=== PATIENT | female | born 1980 | race African-American/Black ===

== ENCOUNTER 2017-08-21 05:15 | Emergency (ER) | payer OTHER ==
[~2017-08-21] VITALS: Ht 185.4 cm; Wt 89.8 kg
--- NOTE | ~2017-08-21 | EKG ---
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
[~2017-08-21 05:15] MED LIST: BACTRIM DS TAB1 EACH PO; DOXYCYCLINE 10100 MG PO; IBUPROFEN 200200 M1 PO; IBUPROFEN 800800 MG PO; LANTUS100 UNIT/M SUBQ; LISINOPRIL10 MG PO; METFORMIN HCL500 MG PO; NEURONTIN600 MG PO; NOHOMEMEDICATIONS; NORCO 5-325 TA1 EACH PO; NOVOLOG100 UNIT/1 SUBQ; OXYBUTYNIN 5 MG5 M2 PO; PERCOCET PO
[2017-08-21 05:16] VITALS: BP 148/93
[2017-08-21 05:37] LABS: ABSOLUTE NEUTROPHILS 8.4 thou/uL (1.4-8.2); BASOPHILS 0.7 % (0.0-2.0); EOSINOPHILS 2.4 % (0.0-3.0); HEMATOCRIT 34.2 % (37.0-47.0); HEMOGLOBIN 11.6 gm/dL (12.0-15.0); LYMPHOCYTES 18.2 % (24.0-44.0); MCH 29.7 pg (26.0-34.0); MCHC 33.8 g/dL (28.0-37.0); MCV 87.9 fL (80.0-100.0); MONOCYTES 5.1 % (1.0-8.0); PLATELET COUNT 383 thou/uL (150-400); POLYS 73.6 % (36.0-66.0); RBC 3.89 mil/uL (4.20-5.00); RDW 15.2 % (10.5-14.5); WBC 11.5 thou/uL (4.0-11.0)
[2017-08-21 05:39] LABS: URINE BILIRUBIN NEGATIVE (Negative); URINE BLOOD 2+ (Negative); URINE CLARITY CLEAR; URINE COLOR YELLOW; URINE GLUCOSE-RANDOM* 2+ (Negative); URINE KETONES NEGATIVE (Negative); URINE LEUKOCYTES-REFLEX NEGATIVE (Negative); URINE NITRITE-REFLEX POSITIVE (Negative); URINE PROTEIN (DIPSTICK) 3+ (Negative); URINE UROBILINOGEN 0.2 E.U./dl (0.2-1.0)
[2017-08-21 05:41] LABS: ANION GAP 9 mmol/L (7-16); BUN 10 mg/dL (7-18); CALCIUM 8.4 mg/dL (8.5-10.1); CHLORIDE 104 mmol/L (98-107); CO2 26 mmol/L (21-32); CREATININE 0.9 mg/dL (0.6-1.0); GLUCOSE 336 mg/dL (74-106); POTASSIUM 3.3 mmol/L (3.5-5.1); SODIUM 139 mmol/L (136-145)
[2017-08-21 05:49] LABS: ALBUMIN 1.3 g/dL (3.4-5.0); SALICYLATE < 2.8 mg/dL (2.8-20.0); SGOT 20 U/L (15-37); SGPT 11 U/L (30-65); TOTAL BILIRUBIN 0.3 mg/dL (<0.1-1.0); TOTAL PROTEIN 5.8 g/dL (6.4-8.2); TROPONIN-I < 0.04 ng/mL (<0.06)
[2017-08-21 06:23] LABS: CASTS None Seen /LPF (None Seen); MUCUS None Seen strn/LPF (None Seen); SQUAMOUS None Seen /LPF (0-3); URINE RBC 3-10 Few /HPF (0-2)
[2017-08-21 06:24] LABS: CRYSTALS None Seen /LPF (None Seen); URINE WBC-REFLEX 6-15 Few /HPF (0-5); WBC CLUMPS Few (None Seen)
[2017-08-21 06:30] LABS: AMP/METHAMP POSITIVE (Negative); BARBITURATES Negative (Negative); BENZODIAZEPINES Negative (Negative); COCAINE Negative (Negative); METHADONE Negative (Negative); OPIATES Negative (Negative); PCP POSITIVE (Negative)
[2017-08-21 09:30] VITALS: BP 130/79
[2017-08-21 10:58] VITALS: BP 146/88
[2017-08-21 12:14] VITALS: BP 148/76
[2017-08-21 13:54] VITALS: BP 130/79
[2017-08-21] MEDS ORDERED: CIPRO500 MG PO ×2 (16:43→16:49)
[2017-08-21 17:14] VITALS: BP 121/68
== END 2017-08-21 17:15 | disposition left against medical advice (07) ==
LOC: ER 05:15 → EROBS 07:00 → ER 07:00 → EROBS 17:15
PROVIDERS: Emergency Medicine
DX: R41.82 Altered mental status, unspecified (principal); E11.9 Type 2 diabetes mellitus without complications; F17.210 Nicotine dependence, cigarettes, uncomplicated

== ENCOUNTER 2019-05-13 21:56 | Inpatient (IN) | payer OTHER ==
[~2019-05-13] VITALS: Ht 162.6 cm; Wt 100.2 kg
[~2019-05-13 21:56] MED LIST changes: +CIPRO500 MG PO
[2019-05-13 21:57] VITALS: BP 196/124
[2019-05-13 22:33] LABS: BASOPHILS 0.8 % (0.0-2.0); EOSINOPHILS 5.9 % (0.0-3.0); LYMPHOCYTES 29.6 % (24.0-44.0); MCH 28.1 pg (26.0-34.0); MCHC 31.3 g/dL (28.0-37.0); MCV 89.6 fL (80.0-100.0); MONOCYTES 6.8 % (1.0-8.0); PLATELET COUNT 274 thou/uL (150-400); POLYS 56.9 % (36.0-66.0); RBC 3.57 mil/uL (4.20-5.00); RDW 16.5 % (10.5-14.5); WBC 7.1 thou/uL (4.0-11.0)
[2019-05-13 22:58] LABS: ANION GAP 6 mmol/L (7-16); BUN 27 mg/dL (7-18); CALCIUM 8.1 mg/dL (8.5-10.1); CHLORIDE 104 mmol/L (98-107); CO2 24 mmol/L (21-32); CREATININE 2.8 mg/dL (0.6-1.0); GLUCOSE 163 mg/dL (74-106); POTASSIUM 4.6 mmol/L (3.5-5.1); SODIUM 134 mmol/L (136-145)
[2019-05-13 23:07] LABS: TROPONIN-I <0.06 ng/mL (<0.06)
[2019-05-13 23:48] VITALS: BP 178/118
[2019-05-13] MEDS ORDERED: LISINOPRIL10 MG PO (23:52)
--- NOTE | 2019-05-13 23:54 | NUR ---
ED NURSE CALLED TO GIVE REPORT TO INPATIENT NURSE, WAS TOLD SHE WILL HAVE TO CALL HER BACK
[2019-05-14 00:30] VITALS: BP 163/102
[2019-05-14] MEDS ORDERED: LANTUS SUBQ (01:36)
[2019-05-14] MEDS ORDERED: PLAVIX 75 MG TA75 MG PO (03:21)
[2019-05-14 04:30] VITALS: BP 157/85
--- NOTE | 2019-05-14 04:59 | NUR ---
PT ARRIVED UNIT AT ABOUT 0035, PT A/OX4, BP ELEVATED, ON 2LO2, ASSESSMENT CHARTED, ADMISSION COMPLETED. PAIN IN RIGHT STUMP MANAGED WITH REPOSITION, ELEVATION, AND MEDICATION. COMPLAINTS OF SOB, OXYGEN INCREASED TO 4L, BREATHING TREATMENT ORDERED AND ADMINISTERED, HELPED. PT RESTING IN BED, WILL CONTINUE TO MONITOR.
[2019-05-14 05:42] LABS: AMP/METHAMP Negative (Negative); BARBITURATES Negative (Negative); BENZODIAZEPINES Negative (Negative); COCAINE Negative (Negative); METHADONE Negative (Negative); OPIATES Negative (Negative); PCP POSITIVE (Negative)
[2019-05-14 06:27] LABS: CALCIUM 8.5 mg/dL (8.5-10.1); CREATININE 2.9 mg/dL (0.6-1.0); MAGNESIUM 1.6 mg/dL (1.8-2.4); POTASSIUM 4.4 mmol/L (3.5-5.1)
--- NOTE | 2019-05-14 07:41 | EKG ---
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 : 1980 Requested By: Eric Jamison Order Number: [id number] MD: Juan Jordan Measurements Intervals [place] Rate: 105 P: 33 UT: 152 QRS: 27 QRSD: 81 T: -30 QT: 389 QTc: 515 Interpretive Statements Sinus tachycardia RSR' in V1 or V2, probably normal variant Possible inferior and lateral infarcts, age indeterminate Prolonged QT interval No previous ECGs available for comparison Electronically Signed On 05-14-2019 7:41:02 GRAVITY METER OBSERVER by Juan Jordan [email or web address] <ELECTRONICALLY SIGNED> By: Juan Jordan MD, [facility] 05/14/19 0741 00 00 Juan Jordan MD, [facility] /EPI
[2019-05-14 08:00] VITALS: BP 152/98
--- NOTE | 2019-05-14 09:39 | 2DMMODE ---
[facility] [address] [place] [address] 2 D/M-MODE ECHOCARDIOGRAM Name: CLAUDETTE LAWSON Room #: 215-P ADM IN ..#: [id number] Admission: 05/13/19 Attend Phys: Prashant Tim Discharge: Date of : 80 Report #: [id number] THIS REPORT FOR: //name// APPROVED REPORT Study performed: 05/14/2019 08:13:30 EXAM: Comprehensive 2D, Doppler, and color-flow Echocardiogram Patient Location: Bedside Room #: 215 Status: routine BSA: 2.04 HR: 95 bpm BP: 157/85 mmHg Other Information Study Quality: Adequate Indications Congestive Heart Failure Diabetes Hypertension/HDD 2D Dimensions RVDd: 46.50 mm IVSd: 12.40 (7-11mm) LVOT Diam: 19.97 (18-24mm) LVDd: 42.56 mm PWd: 13.44 (7-11mm) Ascending Ao: 26.30 (22-36mm) LVDs: 39.98 (25-40mm) Aortic Root: 27.01 mm IVC: 24.00 mm Volumes Left Atrial Volume (Systole) Single Plane 4CH: 59.56 mL Single Plane 2CH: 90.35 mL LA ESV Index: 39.00 mL/m2 Aortic Valve AoV Peak Stalin.: 0.90 m/s AO Peak Gr.: 3.21 mmHg LVOT Max P.54 mmHg LVOT Max V: 0.62 m/s AMMY Vmax: 2.17 cm2 Pulmonary Valve PV Peak Stalin.: 1.49 m/s PV Peak Gr.: 8.92 mmHg [facility] [address] [place] [address] 2 D/M-MODE ECHOCARDIOGRAM Name: CLAUDETTE LAWSON Room #: 215-P [facility]#: [id number] Admission: 05/13/19 Attend Phys: Prashant Tim Discharge: Date of : 80 Report #: [id number] Pulmonary Vein P Vein S: 0.85 m/s P Vein A: 0.30 m/s P Vein D: 0.37 m/s P Vein A Dur.: 90.0 msec P Vein S/D Ratio: 2.30 Tricuspid Valve TR Peak Stalin.: 3.18 m/s RAP Estimate: 15.00 mmHg TR Peak Gr.: 40.50 mmHg PA Pressure: 55.00 mmHg Left Ventricle The left ventricle is normal size. There is global hypokinesis of the left ventricle. Mild concentric left ventricular hypertrophy. Left ventricular ejection fraction is severely decreased. LVEF is 25-30%. Right Ventricle Right ventricle is moderately dilated. The right ventricular systolic function is normal. Atria Left atrium is mildly dilated. Right atrium is moderately dilated. Aortic Valve The aortic valve is normal in structure. No aortic regurgitation is present. There is no aortic valvular stenosis. Mitral Valve The mitral valve is normal in structure. There is no mitral valve regurgitation noted. No evidence of mitral valve stenosis. Tricuspid Valve The tricuspid valve is normal in structure. Mild tricuspid regurgitation. PAP is estimated at 55 mmHg. Pulmonic Valve The pulmonary valve is normal in structure. Trace pulmonic regurgitation. Great Vessels The aortic root is normal in size. IVC is dilated and collapses <50% with inspiration. Pericardium Large pericardial effusion with tamponade physiology Left pleural [facility] [address] [place] [address] 2 D/M-MODE ECHOCARDIOGRAM Name: JADE LAWSONLAI Pompa Room #: 215-P ADM IN .R.#: [id number] Admission: 05/13/19 Attend Phys: Prashant Tim Discharge: Date of : 80 Report #: [id number] effusion is present. <Conclusion> Left ventricular ejection fraction is severely decreased. There is global hypokinesis of the left ventricle. LVEF is 25-30%. Both atria are dilated. The aortic valve is normal in structure. No aortic regurgitation or stenosis The mitral valve is normal in structure. No mitral valve regurgitation. Mild tricuspid regurgitation. PAP is estimated at 55 mmHg. Large pericardial effusion with tamponade physiology <ELECTRONICALLY SIGNED> By: Juan Jordan MD, [facility] 05/14/19 0938 7 7 Juan Jordan MD, FACC /INF
[2019-05-14 11:26] LABS: BF NUCLEATED CELLS 905; BF RBC 1761
--- NOTE | 2019-05-14 11:48 | NUR ---
Case opened to follow for dc planning. Rn Otolaryngology visited with the pt at bedside. She has pericardial fluid taken off this morning. She is drowsy but able to answer basic questions. She is disabled and is a bilat amputee. She has CHF and hx of substance abuse. She reports that she hasn't used drugs or smoked in over 30 days. UDS positive for PCP. Pt denies need or interested in substance abuse or mental health resources. She indicates she lives with her mother, sister, children and other extended family in a house. She and her mother live on the main level. She has a w/c and her prothetic legs at home. She has not been able to use her lt prothesis due to a wound on her stump. She reports being at 2 months ago but does not have any f/u appointments and ran out of medications at home. She has been to [facility] but does not recall when. She reports her next of kin contact to be her father and her medical dpoa to be her best friend Kulwant Irizarry. The pt has health insurance coverage for meds and f/u care;however compliance and substance abuse are concerns. The pt was here last year but left AMA. Message left for admissions at [facility] to confirm her last rehab stay. The pt reports no hh history. Will ask for therapy evals. The pt reports she transfers to her w/c from bed indep without a sliding board. Her plan is to dc home when medically cleared. Will follow for possible HH or rehab referrals at [place].
[2019-05-14 11:58] LABS: CLARITY HAZY; COLOR YELLOW; SOURCE PERICARDIAL; TOTAL VOLUME 60 mL
--- NOTE | 2019-05-14 12:16 | 2DMMODE ---
[facility] [place] [address] 2 D/M-MODE ECHOCARDIOGRAM Name: CLAUDETTE LAWSON Peña Room #: 215-P ADM IN M.R.#: [id number] Admission: 05/13/19 Attend Phys: Prashant Tim Discharge: Date of : 80 Report #: [id number] THIS REPORT FOR: //name// APPROVED REPORT Study performed: 05/14/2019 09:42:55 EXAM: Limited 2D Echocardiogram Patient Location: Drug Discovery Informatics Specialist Room #: 215 Status: routine BSA: 2.12 Other Information Study Quality: Adequate Indications Pericardial Effusion Left Ventricle Left ventricular systolic function is severely decreased. LVEF is 25-30%. Pericardium Large circumferential pericardial effusion. No fluid visualized post pericardiocentesis. <Conclusion> Left ventricular systolic function is severely decreased. LVEF is 25-30%. Large circumferential pericardial effusion. No fluid visualized post pericardiocentesis. <ELECTRONICALLY SIGNED> By: Juan Jordan MD, FACC 05/14/196 15 15 Juan Jordan MD, FACC /INF
[2019-05-14 12:32] VITALS: BP 150/99
[2019-05-14 13:32] LABS: BF MACROPHAGE 2; BF NEUTROPHILS 0
--- NOTE | 2019-05-14 15:40 | NUR ---
I have reviewed the documentation by SANJAY PERKINS from 05/14/19 to 05/14/19 and I concur with it. JOSUE CARTER
[2019-05-14 16:00] VITALS: BP 148/84
[2019-05-14 16:18] LABS: URINE BILIRUBIN NEGATIVE (Negative); URINE BLOOD 1+ (Negative); URINE CLARITY CLEAR; URINE COLOR YELLOW; URINE GLUCOSE-RANDOM* NEGATIVE (Negative); URINE KETONES NEGATIVE (Negative); URINE LEUKOCYTES NEGATIVE (Negative); URINE NITRITE NEGATIVE (Negative); URINE PROTEIN (DIPSTICK) 2+ (Negative); URINE UROBILINOGEN 0.2 E.U./dl (0.2-1.0)
[2019-05-14 16:22] LABS: PROT/CREAT RATIO 16.1; URINE CREATININE-RANDOM* <13 mg/dL; URINE PROTEIN-RANDOM* 209.7 mg/dL (<11.9)
[2019-05-14 16:50] LABS: SQUAMOUS 0-3 Few /LPF (0-3)
[2019-05-14 16:51] LABS: BACTERIA 1-9 Few /HPF (None Seen); CASTS None Seen /LPF (None Seen); CRYSTALS None Seen /LPF (None Seen); URINE RBC 0-2 Rare /HPF (0-2); URINE WBC None Seen /HPF (0-5)
--- NOTE | 2019-05-14 19:26 | NUR ---
PT ALERT AND ORIENTED. VSS. RECEIVED PRN PAIN MED WITH PARTIAL RELIEF. NEW ORDERS NOTED. NO CARDIAC OR RESPIRATORY DISTRESS NOTED. WILL CONTINUE TO MONITOR.
[2019-05-14 20:05] VITALS: BP 132/80
[2019-05-15 01:07] LABS: GLYCOHEMOGLOBIN (HGB A1C) 7.6 % (4.8-5.6)
[2019-05-15 05:05] LABS: ALBUMIN 1.6 g/dL (3.4-5.0); CALCIUM 8.9 mg/dL (8.5-10.1); PHOSPHORUS 5.4 mg/dL (2.5-4.9); POTASSIUM 4.8 mmol/L (3.5-5.1)
[2019-05-15 06:11] VITALS: BP 146/85
--- NOTE | 2019-05-15 07:33 | NUR ---
PT REMAINS A&O, SOFT SPOKEN, PRN PAIN MEDS GIVEN FOR BACK PAIN, VSS, REFUSED LANTUS INSULIN AT HS FOR BG OF 79, SET UP FOR SPONGE BATH, EXTERNAL DRAINING CLEAR YELLOW URINE, C/O BACK AND L SHOULDER PRESSURE AT SHIFT CHANGE, EKG,TROPONIN, AND RT TX GIVEN AND REPORT GIVEN TO NEXT SHIFT TO CON'T WITH PPOC.
[2019-05-15 08:00] VITALS: BP 151/89
[2019-05-15 12:00] VITALS: BP 144/97
[2019-05-15 15:41] VITALS: BP 140/96
--- NOTE | 2019-05-15 15:45 | NUR ---
PT ASSESSED AT START OF SHIFT. HAD C/O CHEST PRESSURE RADIATING TO LT SHOULDER. EKG NEG AND TROPONIN NEG. CARD AND NEPH DRS EXPLAINED TO PT IT WAS FROM THE CARDIOCENTESIS AND WOULD BE SORE FOR A WHILE. EXT FEMALE CATHETER IN PLACE BUT DID NOT CATCH ALL THE URINE. BREATHING BETTER AND NOW ON 2L NC. PT SLEEPING MUCH OF THE SHIFT-NOT EATING VERY WELL FOR FALLING ASLEEP. NO ADDITIONAL PAIN MED GIVEN.
[2019-05-15 16:35] VITALS: BP 125/90
--- NOTE | 2019-05-15 17:26 | NUR ---
RECEIVED PT'S CARE AROUND 1600; PT. ON BED RESTING WITH EYES CLOSED; A0X4; C/O BACK PAIN & R. LOWER LEG; PRN PAIN MEDICATION GIVEN; PT. DROWSY; VS WNL; PRN PAIN MEDICATION GIVEN; PT. ST. LAST BM TWO DAYS AGO; EDUCATED ABOUT THE RELATION OF NARCOTICS & CONSTIPATION; REFUSED MEDICATION; ST. NOT FEELING CONSTIPATED; HAD LUNCH AROUND 1600; NOT ABLE TO ASSESS BS; NO INSULIN COVER; ASSESSMENT CHARGED; FOLLOWING POC; WILL PASS ON REPORT;
[2019-05-15 19:57] VITALS: BP 110/68
[2019-05-15 20:06] LABS: COMPLEMENT-C3 133 mg/dL (82-167); COMPLEMENT-C4 47 mg/dL (14-44)
[2019-05-16 03:00] VITALS: BP 116/71
--- NOTE | 2019-05-16 03:29 | NUR ---
pt resting quietly in bed turning as needed, prn pain med given as needed.vss, will con't to monitor per ppoc.
[2019-05-16 04:19] LABS: ALBUMIN 1.4 g/dL (3.4-5.0); CALCIUM 8.6 mg/dL (8.5-10.1); CREATININE 3.4 mg/dL (0.6-1.0); PHOSPHORUS 5.3 mg/dL (2.5-4.9); POTASSIUM 4.8 mmol/L (3.5-5.1)
[2019-05-16 04:26] LABS: HEMATOCRIT 32.4 % (37.0-47.0); HEMOGLOBIN 10.5 gm/dL (12.0-15.0); MCH 28.5 pg (26.0-34.0); MCHC 32.4 g/dL (28.0-37.0); MCV 88.1 fL (80.0-100.0); RBC 3.67 mil/uL (4.20-5.00); RDW 16.1 % (10.5-14.5); WBC 8.7 thou/uL (4.0-11.0)
[2019-05-16 07:35] VITALS: BP 108/65
[2019-05-16 10:12] VITALS: BP 108/71
[2019-05-16 11:00] VITALS: BP 108/62
--- NOTE | 2019-05-16 12:56 | EKG ---
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 : 1980 Requested By: Lizandro Joshi Order Number: [id number] MD: Juan Jordan Measurements Intervals [place] Rate: 92 P: 53 [place]: 162 QRS: 63 QRSD: 90 T: QT: 436 QTc: 540 Interpretive Statements Sinus rhythm RSR' in V1 or V2, right VCD Prolonged QT interval Compared to ECG 05/13/2019 22:01:16 Sinus tachycardia no longer present Electronically Signed On 05-16-2019 12:56:41 SELLING SPECIALIST by Juan Jordan [email or web address] <ELECTRONICALLY SIGNED> By: Juan Jordan MD, [facility] 05/16/19 1256 0655 0655 Juan Jordan MD, [facility] /EPI
[2019-05-16 17:26] VITALS: BP 120/78
--- NOTE | 2019-05-16 17:46 | NUR ---
PATIENT TRANSFERED FROM CCU AT 1730. A/O X4. NO DISDRESS NOTED.
--- NOTE | 2019-05-16 18:49 | NUR ---
RECEIVED PT'S CARE AROUND 0725; PT. ON BED RESTING; CHEST EQUAL RISING; DURING ASSESSMENT AOX4; C/O PAIN OVER BACK & L. LEG; REQUESTED PRN PAIN MEDICATION; SBP ON THE 100s; BLOOD PRESSURE GIVEN AM; EDUCATED ABOUT BLOOD PRESSURE MEDICATION & PAIN MEDICATION; ST. UNDERSTANDING; PRN PAIN MEDICATION GIVEN LATER; PAIN RE-ASSESSMENT; PT. ST. DECREASE PAIN; LAST BM FEW DAYS AGO; PHYSICIAN NOTIFIED; DRESING CHANGED; SR ON HEART MONITOR; ASSESSMENT CHARGED; FOLLOWING POC; AT 1700 PT. TRANSFER TO ; REPORT GIVEN;
[2019-05-16 19:51] VITALS: BP 120/67
[2019-05-17 03:42] LABS: HEMATOCRIT 30.2 % (37.0-47.0); HEMOGLOBIN 9.6 gm/dL (12.0-15.0); MCH 28.2 pg (26.0-34.0); MCHC 31.9 g/dL (28.0-37.0); MCV 88.5 fL (80.0-100.0); RBC 3.42 mil/uL (4.20-5.00); RDW 16.1 % (10.5-14.5); WBC 7.5 thou/uL (4.0-11.0)
[2019-05-17 03:48] LABS: ALBUMIN 1.2 g/dL (3.4-5.0); CALCIUM 8.3 mg/dL (8.5-10.1); CREATININE 3.6 mg/dL (0.6-1.0); PHOSPHORUS 5.4 mg/dL (2.5-4.9); POTASSIUM 4.9 mmol/L (3.5-5.1)
[2019-05-17 04:52] VITALS: BP 106/62
--- NOTE | 2019-05-17 05:16 | NUR ---
ASSUMED CARE AT 1900. PT DENIES PAIN OR NAUSEA. DENIES SOB BUT C/O FEELING TIRED; LUNGS ARE COARSE ON THE RIGHT, NO CRACKLES NOTED. HAS NOT NEEDED ANY O2 OVERNIGHT. 2+ PITTING EDEMA BLE, COOL AND SLIGHTLY CLAMMY; DISTENDED STOMACH WITH 1+ PITTING EDEMA. DRESSING ON RIGHT BKA CAME OFF; PLACED NEW AQUACEL TO WOUND BED AND PLACED A BORDER FOAM OVER IT. PT PULLED THE EXTERNAL CATHETER OUT, WAS INCONT OF URINE OVERNIGHT. NO OTHER CONCERNS, WILL CONTINUE TO MONITOR.
[2019-05-17 07:28] VITALS: BP 106/68
[2019-05-17 11:18] VITALS: BP 104/66
[2019-05-17 15:31] VITALS: BP 130/84
--- NOTE | 2019-05-17 18:10 | NUR ---
PATIENT ALERT AND ORIENTED X4, PAIN MILDLY CONTROLLED WITH MEDICATION. RIGHT LEG STUMP RE-DRESSED AND WRAPED WITH STEVIE BANDAGE. PATIENT TRANSFERRED TO [facility] WITH X2 ASSISTANCE AND GAIT BELT. PATIENT'S DIET CHANGED FROM CARB CONTROLLED TO RENAL/CARB CONTROLED. PATIENT EDUCATED ON THE CHANGE IN FOOD OPTIONS. NO SIGNS OF ACUTE DISTRESS NOTED AT THIS TIME, WILL CONTINUE TO MONITOR.
[2019-05-17 21:04] VITALS: BP 131/78
--- NOTE | 2019-05-17 21:24 | CATHLAB ---
[facility] [address] [place] [address] INVASIVE PROCEDURE REPORT Name: CLAUDETTE LAWSON Peña Room #: 360-P ADM IN ..#: [id number] Admission: 05/13/19 Attend Phys: Prashant Tim Discharge: Date of : 80 Report #: [id number] THIS REPORT FOR: //name// CC: Lizandro Joshi [facility] physician/PCP PROCEDURE: Pericardiocentesis. INDICATIONS: Pericardial tamponade. DESCRIPTION OF PROCEDURE: The potential benefits and risks of the procedure were discussed with the patient in detail. Full written and informed consent was obtained. The patient was brought into the catheterization suite where her subxiphoid region was prepped and draped in a sterile fashion. 1% Xylocaine was used as local anesthetic. A 6-Qatari sheath was placed into the pericardial space under fluoroscopic guidance. The pigtail catheter was placed through the sheath and 1200 mL of carlos-colored pericardial fluid was removed. The pericardial space was drained dry by echocardiographic imaging. The fluid was sent for cytology, cultures and studies. SUMMARY: Successful pericardiocentesis with removal of 1200 mL of carlos-colored fluid. Resolution of pericardial tamponade. <ELECTRONICALLY SIGNED> By: Juan Jordan MD, [facility] 05/17/19 2124 1251 1411 Juan Jordan MD, FACC /nt
--- NOTE | 2019-05-18 00:09 | NUR ---
ASSUMED CARE AT 1900. ASSESSMENT COMPLETED. PT REPORTS SOME PAIN IN HER LOW BACK, OFFERED PAIN MEDS BUT PT DECLINED AT THAT TIME. REPORTS NORMAL RESP EFFORT BUT INCREASED SOB WHEN TRYING TO LAY DOWN. CALLED ABOUT 2200, REPORTED HEARTBURN WITH SOME NAUSEA; GIVEN A DIET LEMON-UNALAKLEET SODA AND CRACKERS, OBTAINED ORDER FOR TUMS. PT HAD AN INCONT STOOL AFTER PASSING GAS, ASSISTED TO CLEAN UP; REMINDED PT TO CALL FOR ASSISTANCE TO USE BEDPAN FOR URINATING. NO OTHER CONCERNS, HANDOFF AT 2300.
--- NOTE | 2019-05-18 02:28 | NUR ---
ASSESSMENT: PT REMAIN ALERT AND ORIENT TIMES FOUR. LEFT BKA DRESSING CHANGED. THIS RN ASSUMED CARE OF THIS PT AT 2300. PT C/O LEFT THIGH CRAMPING AND PAIN AROUND STUMP AREA. PRN PAIN MEDICATION GIVEN WITH GOOD RELIEF. VSS, AFEBRILE. SR, V-PACED PER MONITOR. DENIES SOB. LASIX PER IV DAILY. FACIAL AND GENERALIZED EDEMA DECREASING PER PT. SLOW PROGRESS TOWARDS DC GOALS. WILL CONTINUE TO MONITOR.
[2019-05-18 05:00] VITALS: BP 127/70
[2019-05-18 05:32] LABS: HEMOGLOBIN 9.9 gm/dL (12.0-15.0); PLATELET COUNT 266 thou/uL (150-400)
[2019-05-18 05:34] LABS: ABSOLUTE NEUTROPHILS 4.8 thou/uL (1.4-8.2); BASOPHILS 0.8 % (0.0-2.0); HEMATOCRIT 30.4 % (37.0-47.0); LYMPHOCYTES 21.2 % (24.0-44.0); MCH 28.7 pg (26.0-34.0); MCHC 32.6 g/dL (28.0-37.0); MCV 87.9 fL (80.0-100.0); MONOCYTES 8.2 % (1.0-8.0); POLYS 65.8 % (36.0-66.0); RBC 3.46 mil/uL (4.20-5.00); RDW 15.9 % (10.5-14.5); WBC 7.3 thou/uL (4.0-11.0)
[2019-05-18 05:53] LABS: ALBUMIN 1.3 g/dL (3.4-5.0); CALCIUM 8.5 mg/dL (8.5-10.1); CREATININE 3.7 mg/dL (0.6-1.0); PHOSPHORUS 5.8 mg/dL (2.5-4.9); POTASSIUM 4.6 mmol/L (3.5-5.1)
[2019-05-18 07:42] VITALS: BP 117/79
[2019-05-18 11:33] VITALS: BP 121/80
[2019-05-18 15:13] VITALS: BP 131/82
[2019-05-18 19:44] VITALS: BP 134/83
[2019-05-19 04:35] LABS: ALBUMIN 1.3 g/dL (3.4-5.0); CALCIUM 8.5 mg/dL (8.5-10.1); CREATININE 3.8 mg/dL (0.6-1.0); PHOSPHORUS 5.8 mg/dL (2.5-4.9); POTASSIUM 4.4 mmol/L (3.5-5.1)
[2019-05-19 04:36] VITALS: BP 117/74
--- NOTE | 2019-05-19 06:30 | NUR ---
Pt. slept some during the night. Tolerating room air well though she stated she gets short of breath with exertion at times. Bed alarm on for safety.Right lower leg wound with dressing dry and intact. making progress towards care plan goals.
[2019-05-19 07:45] VITALS: BP 134/84
--- NOTE | 2019-05-19 09:56 | NUR ---
Nutrition: Assessed d/t consult for malnutrition, education needed on renal, cardiac, diabetic diet. Admit: CHF exacerbation, acute respiratory failure w/ hypoxia. Pt also has identified open wound on R stump. Hx: R BKA, L AKA, CHF, type 1 DM, CELESTINE on CKD. States DM since 11 y.o. and fully understands dietary needs for DM control. Fasting BG 102 mg/dl. Pt very frustrated being told each new day she can't have another food. At present, only on renal diet. Resistant to in-depth renal diet ed, but allowed RD to share olson points/rationale for why certain foods are restricted. Understands low Na needs, states she knows how to "swell/de-swell." On Lasix BID. Averaging 53% of meals x 3 days and 65% overall since 05/14. Focused on high phos foods to avoid/limit given high labs of 5.8 mg/dl today. On phos binders w/ calcium carbonate TID to help. Allowed a few meal modifications to include world renowned chef and restaurant owner salad w/ turkey at lunch, potato serving 2-3x/wk (K+ WNL at 4.4 mg/dl), small raisin svg w/ oatmeal. Confirmed planned nutrition changes w/ both nursing and kitchen. Low nutrition risk. Will defer malnutrition dx at this time. Monitor K+/phos labs for fluctuation.
[2019-05-19 11:28] VITALS: BP 136/80
--- NOTE | 2019-05-19 11:57 | NUR ---
SW reviewed chart and spoke with nursing and attending physician. Pt was transferred to 3 from ICU and is progressing towards goals for discharge. SW met with pt at bedside to discuss discharge plan. Pt states she has been to inpt acute rehab in the past, but asked about possibility of going to a skilled/roasterman care facility. Pt states she has three children who are staying with pt's mother. Pt asked about moving into an AL facility using her [place]-Medicaid. SW discussed option of having [facility] evaluate pt for admission to their SNF/LTC and possibily their RCF if pt qualifies. SW explained that her children would most likely not be able to stay with her, but would be allowed to visit. Pt verbalized understanding and states that her kids would continue to live with pt's mother. Pt reports that she is home alone from 0550-399[address] during the week and she feels that she needs additional care. SW discussed Medicaid in-home services. Pt states that her mother does not like people coming into her home. associate merchandise planner to fax referral to [facility]. JAMSHID notified [facility] liaison of new referral. JAMSHID is following to assist as needed with discharge planning.
--- NOTE | 2019-05-19 12:03 | NUR ---
DISCHARGE PLANNING. DISCHARGE DATE NOT STATED AT THIS TIME. POST ACUTE RECOMMENDED AT DISCHARGE. PATIENT REFERRAL FAXED TO [facility], FOR POST ACUTE CARE NEEDS PER REQUEST. MILE, [facility] HOSPITAL LIAISON NOTIFIED. MILE TO REVIEW REFERRAL AND NOTIFY CM. FOLLOWING.
--- NOTE | 2019-05-19 13:07 | PATH ---
[facility] [address] [place] [address] PATHOLOGY RPT PROCEDURE Name: CLAUDETTE LAWSON Room #: 360-P ADM IN .R.#: [id number] Admission: 05/13/19 Date of : 80 Discharge: Report #: [id number] Path Case #: [id number] Note [facility] Accession Number: [id number] TESTS RESULT FLAG UNITS REF RANGE LAB Clinician Provided Cytology Information No. of containers..01 Other (Miscellaneous) Source: PERICARDIAL FLUID DIAGNOSIS: 02 PERICARDIAL FLUID NEGATIVE FOR MALIGNANT EPITHELIAL CELLS. MESOTHELIAL CELLS ARE PRESENT. THIS INTERPRETATION INCLUDES EVALUATION OF A CELL BLOCK. Pathologist ICD10: 02 J96.01 Signed out by: 02 Kaylyn Paris MD, Pathologist NPI- [id number] Performed by: Ileana Jones Tanning Wheel Filler ([facility]) Gross description: 01 15 ML, YELLOW, CLEAR /LCS 06/17/1840 0000 Local FLAG LEGEND: L-Low Normal,H-High Normal,LL-Alert Low,HH-Alert High <-Panic Low,>-Panic High,A-Abnormal,AA-Critical Abnormal Performed at: [address] [place] [address] Rui Delaney MD, [address] [address] Kaylyn Paris MD, Specimen Comment: A courtesy copy of this report has been sent to [phone], [phone] Specimen Comment: [id number] Specimen Comment: [id number] Specimen Comment: Report sent to / DR BLAIR Specimen Comment: Report sent to Performed at: [address], [place], [place] [id number] MD Rui Delaney MD Phone: [phone]
[2019-05-19 15:42] VITALS: BP 133/82
--- NOTE | 2019-05-19 16:11 | NUR ---
Patient left unit despite being told not to go to the [employer] for a "coloring book." The patient took off her pvc monitor and went downstairs in her wheelchair. Dr. Blake notified and asked if the patient could be med surg status. An okay from Dr. Blake was given to make the patient med surg. The patient was noticed to be gone for about 30 minutes. This RN went down to the gift shop and found that the patient was sitting in her wheelchair in the dark with the door locked waiting for somone to help her. A [employer] employee walked by & went to get someone from the resource office while this RN stayed with the patient to unlock the door. The [employer] employee who unlokced the door then assisted the patient with purchasing her items. The patient stated that the lady working behind the counter previously said she was going to look for coloring books then the lights turned off shortly after and the patient was alone. The patient stated she was yelling "hello" but no one was there to assist until this RN found the patient. The patient was in good spirits and medically okay. This RN stayed with the patient the whole time once found, and helped wheel the patient back upstairs to her room. Telemetry dc'd per med surg order. Patient brought various free entertainment books by volunteer services.
--- NOTE | 2019-05-19 16:26 | NUR ---
Assumed care approx. 0700 this AM. Patient changed to med-surg status per Dr. Blake. Dressing changed completed on right stump. Oxycodone given once for back pain and right leg pain. No acute changes medically. No SOB or distress. Pt progressing toward plan of care.
--- NOTE | 2019-05-19 17:12 | HC ---
[facility] [place] [address] CONSULTATION Name: CLAUDETTE LAWSON Peña Room #: 360-[facility] IN ..#: [id number] Admission: 05/13/19 Attend Phys: Lizandro Joshi MD Discharge: Date of : 80 Report #: [id number] THIS REPORT FOR: //name// CC: Lizandro Joshi FAM physician/PCP DATE OF SERVICE: 05/19/2019 ENDOCRINE CONSULTATION NOTE CONSULTING PHYSICIAN: Dr. Villalta. REASON FOR CONSULTATION: Uncontrolled type 1 diabetes mellitus. HISTORY OF PRESENT ILLNESS: This is a 39-year-old female patient whose medical background is significant for stage 4 chronic kidney disease, type 1 diabetes mellitus as well as congestive heart failure. The patient presented to the ER on 05/13/2019 with complaints of shortness of breath starting and progressing rapidly the day of admission. It appears that she had been dealing with mounting chest discomfort for the week preceding her presentation as well. The patient was subsequently admitted for further care and monitoring where she was found to have cardiac tamponade and had undergone a successful pericardiocentesis with 1200 mL of pericardial effusion removed. Also, she was found to be in acute on chronic left ventricular systolic heart failure with an ejection fraction of 25%, made worse by pericardial effusion. The patient's background again is noted for type 1 diabetes mellitus that was diagnosed at the age of 11 years. The patient notes that she has been on insulin therapy for the majority of her course of diabetes mellitus and that is her most recent home based regimen consisted of Lantus insulin and NovoLog insulin. She believes she had been taking 30 units of Lantus daily as well as 15-18 units of NovoLog as needed with meals. She describes fasting blood glucose values that have fallen mostly in the 100 mg/dL range and postprandial values that have predominantly been over 200 mg/dL, but rarely in the 300 mg/dL range. She does not have recurrent issues or difficulties with hypoglycemia at home, but has dealt with a few episodes since her presentation to us. The patient is not aware of significant retinopathy difficulties, but has advanced kidney disease designated a stage 4 chronic kidney disease. She is also known to have peripheral vascular disease, status post right BKA and left AKA. She has CHF as well as a history of DVT. REVIEW OF SYSTEMS: CONSTITUTIONAL: Fatigue, tiredness, but not fever or chills. No significant body weight changes. HEENT: Negative for sore throat, sinus pain. PULMONARY: Shortness of breath, cough, but not hemoptysis. [address] [address] CONSULTATION Name: CLAUDETTE LAWSON Room #: 360-[facility] IN ..#: [id number] Admission: 05/13/19 Attend Phys: Lizandro Joshi MD Discharge: Date of : 80 Report #: [id number] CARDIAC: Chest pain, shortness of breath, generalized body edema. GASTROINTESTINAL: Abdominal distention, abdominal discomfort, nausea, but no vomiting. NEUROLOGY: Negative for loss of consciousness, headaches or seizure activity. PSYCH: Depressed mood. Occasional anxiety. No delusions or hallucinations, otherwise, review of systems noncontributory other than those mentioned in HPI. PAST MEDICAL HISTORY: 1. Type 1 diabetes mellitus as noted in HPI. 2. Peripheral vascular disease, status post left AKA and right BKA. History of DVT, CHF, stage 4 chronic kidney disease, pericardial tamponade as noted above. Diabetic neuropathy. OUTPATIENT MEDICATIONS: Include Lantus insulin 30 units q.p.m., NovoLog insulin 15-18 units with meals, variable doses could be once to 3 times a day. Plavix 75 mg daily, Percocet 7.5 mg b.i.d. p.r.n. pain, Neurontin 600 mg p.o. b.i.d., oxybutynin 5 mg at bedtime, lisinopril 10 mg b.i.d. ALLERGIES: THE PATIENT IS ALLERGIC TO AMPICILLIN, CONTRAST DYE, HYDROCODONE, IODINE AND SULFA. FAMILY HISTORY: Noncontributory. SOCIAL HISTORY: She lives with her mother and 4 children. She had been a lifetime smoker, but quit less than a year ago. She used to do illicit drugs including THC, methadone, PCP, but quit these few months ago. She is not actively drinking alcohol. PHYSICAL EXAMINATION: GENERAL: -Vietnamese female patient sitting comfortably at the side of her bed, not in apparent pain or distress. VITAL SIGNS: Blood pressure is 136/80 mmHg, heart rate is 84 beats per minute, respiration 18 per minute, temperature 37.3 degrees. Constitutional, the patient appears comfortable, not in apparent distress. HEENT: Anicteric sclerae. Intact extraocular motions. NECK: Supple, without JVD, carotid bruits or lymphadenopathy. I do not appreciate thyromegaly. CHEST: Noted for moderate entry bilaterally with scattered rales and rhonchi. HEART: Distant heart sounds. Regular rate and rhythm without murmurs or gallops. ABDOMEN: Soft and lax without tenderness or organomegaly. No guarding. EXTREMITIES: Lower extremity exam is noted for a right BKA and left AKA. NEUROLOGIC: Awake, alert and oriented to time, place and person. The remainder of her examination is largely nonfocal. PSYCHIATRIC: Flat mood and affect, but appropriate, interactive and have answered most of my questions appropriately. [facility] [place] [address] CONSULTATION Name: CLAUDETTE LAWSON Room #: 360-P ADM IN M.R.#: [id number] Admission: 05/13/19 Attend Phys: Lizandro Joshi MD Discharge: Date of : 80 Report #: [id number] LABORATORY DATA: Blood glucose values today, she was most recently at 160, prior to that 102, prior to that 157, last night 201, 129. The patient had a recording of 77, 75, 87 and 84 as well as 68 mg/dL as her lowest blood glucose values. Otherwise, sodium 136, potassium 4.4, chloride 103, CO2 of 24, anion gap 9, BUN 46, creatinine 3.8, AST 20, total bilirubin 0.3, direct bilirubin 0.1, calcium 8.5, phosphorus 5.8, magnesium 1.6, alkaline phosphatase 127, total protein 5.8, albumin 1.3, GFR 16. BNP 14,347, white blood count 7.3, hemoglobin 9.9, hematocrit 30.4, platelets 266. Hemoglobin A1c 7.6%. ASSESSMENT AND PLAN: 1. Type 1 diabetes mellitus, uncontrolled. The patient had a longstanding history of type 1 diabetes mellitus, marked by significant microvascular and macrovascular complications, culminating in bilateral lower extremity limb loss as well as advanced stage 4 chronic kidney disease. The patient reports blood glucose control that is largely inadequate at home with most blood glucose values following above target range. While her hemoglobin A1c does not seemingly appeared to be far from goal at 7.6, I believe that it is markedly lowered by her chronic renal insufficiency and anemia. The patient was counseled about the need to achieve and maintain adequate glycemic control to contain her complications, especially in view of significant renal insufficiency. The patient expressed a great deal of distress about the occurrence of mild hypoglycemia while she was here, which I understand in terms of the patient probably getting exaggerated symptoms due to her lack of exposure to normalize blood glucose values. I noted that during her hospital stay the patient had been given a combination of Lantus insulin 18 units at bedtime in addition to Humalog supplemental scale of moderate dose. I will change that to low dose coverage and request that this be given only when she exceeds a blood glucose of 200 mg/dL. Furthermore, as a type 1 diabetic, she should be getting scheduled coverage with meals, which I will do in the form of 4 units with meals while dropping her Lantus insulin coverage to 12 units at bedtime. Blood glucose monitoring will continue a.c. and at bedtime. Furthermore, the patient is rather confused about how to implement the various recommendations for dietary changes including accommodating a renal diet, cardiac diet as well as diabetic diet. I believe that a dietitian consult would to be very helpful in this regard, especially to help the patient plan her dietary practices at home when she is eventually discharged from here. 2. Hypertension. The patient's level of blood pressure control is adequate, she is to continue with the current regimen. 3. Renal insufficiency. The patient has advanced stage 4 chronic kidney disease, she is definitely at high risk for needing hemodialysis not in the very [facility] [address] [place] [address] CONSULTATION Name: CLAUDETTE LAWSON Peña Room #: 360-P [facility] IN M.R.#: [id number] Admission: 05/13/19 Attend Phys: Lizandro Joshi MD Discharge: Date of : 80 Report #: [id number] far future. Nephrology is actively following the patient. 4. Thyroid dysfunction. As a type 1 diabetic, the patient is at high risk for hypothyroidism and thyroiditis. I will screen for this issue with a TSH and free T4 levels. I reviewed the patient's clinical care notes, laboratory data, and other pertinent clinical data from her electronic medical chart for over 35 minutes. I certainly appreciate this consultation. <ELECTRONICALLY SIGNED> By: Lilian Dixon MD 05/19/19 1712 [id number] [id number] Lilian Dixon MD /nt
--- NOTE | 2019-05-19 18:37 | HC ---
[facility] [place] [address] CONSULTATION Name: CLAUDETTE LAWSON Peña Room #: 360-P [facility] IN .R.#: [id number] Admission: 05/13/19 Attend Phys: Lizandro Joshi MD Discharge: Date of : 80 Report #: [id number] THIS REPORT FOR: //name// CC: Lizandro Joshi [facility] physician/PCP DATE OF SERVICE: 05/14/2019 CHIEF COMPLAINT: Ulceration on the right below knee amputation. HISTORY OF PRESENT ILLNESS: This is a 39-year-old female patient who has been previously followed at [facility], was admitted to the hospital with increasing shortness of breath, dyspnea on exertion, orthopnea and was felt to have volume overload or congestive heart failure. She has had a left above-knee amputation and a right below knee amputation. States that the right side has healed in the past, although when she retains fluid sometimes the right stump breaks open. She was unable to successfully complete a course of rehabilitation at [facility] due to her inability to wear her prosthetic on the right leg as a result of the ulceration. She denies significant pain associated with this, but I have been asked to see her with regard to wound care. PAST MEDICAL HISTORY: Positive for history of type 1 diabetes mellitus, left below knee amputation, followed by a left above-knee amputation and then a right below-knee amputation. She has a history of DVT, congestive heart failure, chronic kidney disease stage 4 and peripheral arterial disease with bilateral lower extremity stents. SOCIAL HISTORY: The patient is a smoker, one-half pack per day. Denies alcohol use. FAMILY HISTORY: Positive for diabetes mellitus in her grandmother and coronary artery disease in her father. CURRENT MEDICATIONS: Include Plavix, Lantus, Percocet, Neurontin, oxybutynin, Zestril. ALLERGIES: AMPICILLIN, CONTRAST DYE, HYDROCODONE, IODINE, SULFA. REVIEW OF SYSTEMS: CONSTITUTIONAL: The patient denies fever, chills or weight loss. NEUROLOGICAL: The patient denies focal weakness, numbness or tingling. EYES: The patient denies visual changes, redness, or drainage. ENT: The patient denies earache, nasal drainage, sore throat. CARDIOVASCULAR: The patient does complain of sharp chest pain. PULMONARY: The patient does complain of cough and shortness of breath as well as orthopnea. [address] [address] CONSULTATION Name: CLAUDETTE LAWSON Peña Room #: 360-P [facility] IN M.R.#: [id number] Admission: 05/13/19 Attend Phys: Lizandro Joshi MD Discharge: Date of : 80 Report #: [id number] GASTROINTESTINAL: The patient denies nausea, vomiting, diarrhea or abdominal pain. GENITOURINARY: The patient denies frequency, urgency, dysuria. ORTHOPEDIC: The patient is aware of the amputations and has discussed with me the ulceration on her right BKA site. She denies pain associated with this. Other systems in a 14-point review of systems are negative. PHYSICAL EXAMINATION: VITAL SIGNS: At this time include temperature 36.1, pulse 95, respiratory rate 18, blood pressure 148/84. GENERAL: This is a somewhat chronically ill-appearing female patient who appears to be in no obvious distress. HEENT: Head normocephalic. Nose and throat clear. NECK: Supple. LUNGS: Diminished. HEART: Regular rate and rhythm. ABDOMEN: Soft, bowel sounds present. EXTREMITIES: Examination of the lower extremities demonstrates an intact left below-knee amputation site. Right BKA is edematous. There is a circular ulcer on the distal portion of the stump. It is clean with good granulation tissue and is not overtly infected. No exposure of any deep structures. NEUROLOGIC: The patient is alert and oriented and moving all 4 extremities. LABORATORY DATA: Includes white blood cell count 7.1, hemoglobin 10.0. Sodium 134, potassium 4.6, chloride 104, CO2 of 24, BUN 27, creatinine 2.8. CLINICAL IMPRESSION: 1. Ulceration of the right below knee amputation stump, likely due to friction from her prosthesis and underlying volume overload. 2. Diabetes mellitus type 1. 3. Prior left above-knee amputation. 4. History of right below knee amputation. 5. Volume overload/congestive heart failure. RECOMMENDATIONS: At this point in time, we will recommend topical silver alginate covered with ABD, Kerlix and Paramjit wrap for compression to be changed daily. We will recommend that she not wear her prosthesis in the short term. We will recommend continued maximal medical therapy and nutritional support to maximize wound healing and continuation of current medications. PT, OT as tolerated. I appreciate being asked to see her in consultation. <ELECTRONICALLY SIGNED> By: Perry Villar MD 05/19/19 183 1658 16 Perry Villar MD /nt
[2019-05-19 20:55] VITALS: BP 141/84
--- NOTE | 2019-05-20 04:06 | NUR ---
PT TRANSFERRED FROM 3W @2029 VIA WHEELCHAIR A&O4 IV INTACT IN RT HAND SALINE LOCK. LFT AKA AND R BKA. PAIN MED OXYCODONE GIVENX1 THIS SHIFT. AMBULATES WITH W/C HAS A STRONG UPPER BODY STRENGTH. FALL PREC IN PLACE AND PT CALLS TO LET NEEDS KNOWN WILL CONT WITH POC TILL EOS.
[2019-05-20 04:45] VITALS: BP 129/74
[2019-05-20 06:23] LABS: ALBUMIN 1.3 g/dL (3.4-5.0); CALCIUM 8.4 mg/dL (8.5-10.1); CREATININE 3.7 mg/dL (0.6-1.0); PHOSPHORUS 5.7 mg/dL (2.5-4.9); POTASSIUM 4.5 mmol/L (3.5-5.1)
[2019-05-20 08:34] VITALS: BP 118/71
--- NOTE | 2019-05-20 11:30 | 2DMMODE ---
[facility] [employer] [place] [address] 2 D/M-MODE ECHOCARDIOGRAM Name: SOPHIE LAWSONBinta Pompa Room #: 440-P ADM IN .R.#: [id number] Admission: 05/13/19 Attend Phys: Prashant Tim Discharge: Date of : 80 Report #: [id number] THIS REPORT FOR: //name// APPROVED REPORT Study performed: 05/20/2019 10:26:54 EXAM: Limited 2D, Doppler, and color-flow Echocardiogram Patient Location: Bedside Room #: 440 Status: routine BSA: 2.12 HR: 80 bpm BP: 118/71 mmHg Rhythm: NSR Other Information Study Quality: Good Indications Limited echo for follow up pericardial effusion. Status post centesis 05/14/19. Hx: [id number] Tricuspid Valve TR Peak Stalin.: 2.82 m/s RAP Estimate: 10.00 mmHg TR Peak Gr.: 32.00 mmHg PA Pressure: 42.00 mmHg Left Ventricle The left ventricle is normal size. Left ventricular systolic function is severely decreased. LVEF is 25-30%. Right Ventricle Right ventricle is dilated. Right ventricle is hypokinetic. Atria Left atrium is dilated. Right atrium is dilated. Aortic Valve The aortic valve is normal in structure. No aortic regurgitation is present. Mitral Valve The mitral valve is normal in structure. Trace mitral [facility] [address] [place] [address] 2 D/M-MODE ECHOCARDIOGRAM Name: CLAUDETTE LAWSON Room #: 440-P ADM IN M.R.#: [id number] Admission: 05/13/19 Attend Phys: Prashant Tim Discharge: Date of : 80 Report #: [id number] regurgitation. Tricuspid Valve The tricuspid valve is normal in structure. Mild to moderate tricuspid regurgitation. Estimated PAP is 40-45mmHg. Pulmonic Valve The pulmonary valve is normal in structure. Trace pulmonic regurgitation. Pericardium Large circumferential pericardial effusion with early Doppler findings of tamponade physiology Left and right pleural effusions noted. <Conclusion> Left ventricular systolic function is severely decreased. LVEF is 25-30%. Large, recurrent circumferential pericardial effusion with early Doppler findings of tamponade physiology <ELECTRONICALLY SIGNED> By: Juan Jordan MD, FACC 05/20/19 1129 1129 28 Juan Jordan MD, FAC /INF
[2019-05-20] MEDS ORDERED: LISINOPRIL10 MG PO (12:14)
[2019-05-20] MEDS ORDERED: COREG6.25 MG PO (12:14)
[2019-05-20] MEDS ORDERED: LASIX 40 MG TAB40 M1 PO (12:14)
--- NOTE | 2019-05-20 12:40 | NUR ---
PT A&OX4. IV INTACT IN R HAND. L AKA AND R ENEDELIAA NOTED. TOLERATING PO PAIN MED FOR LWER EXTREM. AND BACK PAIN. PT IS NPO FOR POSIBLE PERICARDIAL CENTESIS TODAY OR TOMMOROW. WILL HOLD OFF ON DC PER TODAY.
[2019-05-20 13:31] LABS: CALCIUM 8.8 mg/dL (8.5-10.1); CREATININE 3.8 mg/dL (0.6-1.0); POTASSIUM 4.7 mmol/L (3.5-5.1)
[2019-05-20 13:36] LABS: APTT 23.3 Seconds (24.5-32.8); PROTIME 9.9 Seconds (9.3-11.4)
[2019-05-20 13:37] LABS: ALBUMIN 1.5 g/dL (3.4-5.0); TOTAL BILIRUBIN 0.2 mg/dL (<0.1-1.0); TOTAL PROTEIN 6.9 g/dL (6.4-8.2)
--- NOTE | 2019-05-20 16:18 | NUR ---
RECEIVED WORD BACK FROM MILE FROM [facility] THAT THEY CAN ACCEPT PT BUT WOULD PREFER SHE GO TO THEIR SISTER [facility] IN [place] FOR A COUPLE OF WEEKS AND THEN IF SHE DOES OK THEN TRANSITION TO [facility]. MILE WILL COME AND DISCUSS THIS WITH THE PT. PT WILL BE HAVING A PROCEDURE TOMORROW TO DRAIN FLUID FROM AROUND HER HEART.
[2019-05-20 17:24] VITALS: BP 146/94
[2019-05-20 19:10] VITALS: BP 136/83
[2019-05-21 05:05] VITALS: BP 125/78
--- NOTE | 2019-05-21 06:31 | NUR ---
Received report from the off going RN and assumed patient care. Patient is AAOx4. Patient noted to have pitting edema in the abdomen and in all extremeties. Patient complained of pain once during this shift and was given her PRN pain med. Plan is for patient to get a subxiphoid pericardiotomy today with Dr. Collier. Patient placed NPO at midnight and voiced understanding to not eat or drink until after the procedure. Patient voiced no further concerns or complaints during this shift.
[2019-05-21 08:11] VITALS: BP 163/68
[2019-05-21 09:09] VITALS: BP 123/77
[2019-05-21 09:54] LABS: HEMATOCRIT 29.9 % (37.0-47.0); HEMOGLOBIN 9.6 gm/dL (12.0-15.0); MCV 87.3 fL (80.0-100.0); RBC 3.43 mil/uL (4.20-5.00); RDW 15.5 % (10.5-14.5); WBC 5.6 thou/uL (4.0-11.0)
[2019-05-21 10:12] LABS: CALCIUM 8.7 mg/dL (8.5-10.1); CREATININE 3.7 mg/dL (0.6-1.0); POTASSIUM 4.4 mmol/L (3.5-5.1)
[2019-05-21 10:17] LABS: CREATININE 3.6 mg/dL (0.6-1.0); POTASSIUM 4.4 mmol/L (3.5-5.1)
[2019-05-21 10:30] LABS: ALBUMIN 1.5 g/dL (3.4-5.0); CALCIUM 8.4 mg/dL (8.5-10.1); PHOSPHORUS 5.8 mg/dL (2.5-4.9)
--- NOTE | 2019-05-21 17:42 | NUR ---
PT ALERT AND ORIENTED TIMES FOUR. VSS, 98%RA, PT DENIES PAIN/SOA. NPO FOR SURGERY TODAY. BLOOD SUGAR TAKEN 62 ONE AMP D50 GIVEN..BS STILL LOW AFTER RECHECK DR CALLED SEE AUG FOR ORDERS. PT DENIES PAIN/SOA. PT UP TO BSC WITH ASSIST OF ONE. DRESSING ON RIGHT STUMP DONE BY WOUND CARE TEAM TODAY. PT TAKEN TO SURGERY THIS AFTERNOON.
[2019-05-21 21:45] VITALS: BP 118/65
--- NOTE | 2019-05-21 21:50 | NUR ---
Pt rec'd from PACU s/p Subxiphoid Pericardiotomy to ICU room 245. Upon arrival pt A&O x4. Pain controlled. Warm blankets placed for temp. 96.5. Midline chest incision with STEW dressing. Mid sternal CT to -20 cm SX (pericardial). Left radial a-line transduced with approp. waveform. REJ line positional. Right wrist IV clotted off. Pt c/o being hungry. BS 88. Will call Dr Dixon re: insulin orders. Velasco cath in place with small amt clear yellow urine.
[2019-05-21 22:00] VITALS: BP 116/65
--- NOTE | 2019-05-21 22:15 | NUR ---
Dr. Vallejo called re: continued low blood sugars requiring D50. BS at 2200 88. Order rec'd to hold all insulin tonight. Will reevaluate in the am.
[2019-05-22] VITALS (17 sets, daily range): BP systolic 63–147; BP diastolic 47–74
[2019-05-22 05:21] LABS: HEMATOCRIT 28.6 % (37.0-47.0); HEMOGLOBIN 9.4 gm/dL (12.0-15.0); MCH 28.2 pg (26.0-34.0); MCHC 32.7 g/dL (28.0-37.0); MCV 86.4 fL (80.0-100.0); RBC 3.31 mil/uL (4.20-5.00); RDW 15.6 % (10.5-14.5); WBC 10.5 thou/uL (4.0-11.0)
[2019-05-22 05:55] LABS: ALBUMIN 1.4 g/dL (3.4-5.0); CALCIUM 8.4 mg/dL (8.5-10.1); CREATININE 3.7 mg/dL (0.6-1.0); PHOSPHORUS 6.1 mg/dL (2.5-4.9); POTASSIUM 5.4 mmol/L (3.5-5.1); TOTAL BILIRUBIN 0.2 mg/dL (<0.1-1.0); TOTAL PROTEIN 6.1 g/dL (6.4-8.2)
--- NOTE | 2019-05-22 06:10 | NUR ---
Shift summary: Pain controlled. VSS off cardene gtt. Normothermic. Room air. Lungs clear. BS active. No stool. Requesting food and drink all night long. Needs frequent reeducation re: dietary restrictions, fluid restriction etc. BS 221 per lab this am. Insulin held last noc d/t hypoglycemia pre and post op. Velasco with 350ml/8 hr. Midline chest incision CD&I. Pericardial drain with 50 ml serosang drng/8hr. Right EJ saline lock positional. Plan of care reviewed and updated as able. Slow progress toward discharge goals.
--- NOTE | 2019-05-22 10:09 | NUR ---
PT IS POD #1 PERICARDIAL WINDOW. DISCUSSED [facility] CTS PA. PT HAS CHEST TUBE CURRENTLY AND NOT MEDICALLY READY FOR A FEW DAYS R/T DIURESIS. PATRICIA FROM AND [facility] MET WITHPT TO DISCUSS SKILELD REHAB AT EITHER OR O.P. LOCATION WHEN MEDICALLY STBALE. PT INDICATED SHE WAS OK WITH EITHER FACILITY CURRENTLY.
--- NOTE | 2019-05-22 10:11 | NUR ---
ASSUMED CARE @ 0700 05/22/19, PT ASSESSMENTS COMPLETE PER ICU PROTOCOL. DURING MORNING ASSESSMENT PT STATES SHE IS IN PAIN, RN ASKS HER TO RATE PAIN WHICH SHE RATED 8/10, PER ORDERS, SHE QUALIFIES FOR 2 TABS OF OXYCODONE AND ORDER CLEARLY STATES USE PO OXYCODONE FIRST BEFORE FENTANYL IV. AFTER THIS IS ADMINISTERED APPROXIMATELY 10 MINS AFTER PT COMPLAINS THAT I SHOULD HAVE GIVEN HER THE IV PAIN MEDICATION FIRST, I EXPLAINED TO HER WHAT THE ORDERS STATED AND HOW I CAN GIVE HER FENTANYL IV ONLY AFTER I HAVE GIVEN HER OXYCODONE PO AND IF NOT EFFECTIVE WE CAN GO AHEAD AND GIVE HER IV FENTANYL. SHE IS CLEARLY UPSET ABOUT IT AND VOICES THIS TO DR TIAN MORSE'S PA. HE ALSO EXPLAINS TO HER THE REASONS WHY THE ORDER IS WRITTEN THIS WAY.
[2019-05-23] VITALS (23 sets, daily range): BP systolic 108–147; BP diastolic 66–89
[2019-05-23 05:03] LABS: ALBUMIN 0.8 g/dL (3.4-5.0); CALCIUM 8.4 mg/dL (8.5-10.1); PHOSPHORUS 6.6 mg/dL (2.5-4.9); POTASSIUM 5.6 mmol/L (3.5-5.1)
--- NOTE | 2019-05-23 06:42 | NUR ---
Pt frequently requesting pain meds, and was medicated prn per dr's orders. Pt slept intermittently. Chest tube in place, patent and draining to suction, serosanguneous fluid, taisha drsg on mid chest intact. Artline on left radial bp with acceptable limits.
--- NOTE | 2019-05-23 17:35 | HC ---
[facility] [place] [address] CONSULTATION Name: CLAUDETTE LAWSON Peña Room #: 245-P ADM IN .R.#: [id number] Admission: 05/13/19 Attend Phys: Lizandro Joshi MD Discharge: Date of : 80 Report #: [id number] THIS REPORT FOR: //name// CC: Lizandro Joshi [facility] physician/PCP DATE OF SERVICE: 05/20/2019 We were asked to see the patient by Dr. Jordan. HISTORY OF PRESENT ILLNESS: The patient is a 39-year-old admitted on 05/13/2019 with heartburn and postural dyspnea. The patient was found to have a large pericardial effusion and had pericardiocentesis done for nearly 2 liters of fluid. The patient had generalized swelling of abdomen and hips and thighs in the setting of increased creatinine and decreasing renal function and what was also diagnosed as nephrotic syndrome. The symptoms had begun to recur over the last day or so and a repeat echo showed reaccumulation of the fluid and our help was requested for pericardial drainage. PAST MEDICAL HISTORY: Significant for diabetes mellitus and hypertension. The patient also has had bilateral lower extremity amputations in stages for what the patient claims were spider bites and nonhealing wounds. 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 The patient also claims to have had stents placed in the lower extremities at [facility] for these problems. MEDICATIONS AT HOME: Include Plavix, Lantus, Percocet, NovoLog, Neurontin, oxybutynin and lisinopril. ALLERGIES: AMPICILLIN CAUSES A RASH, CONTRAST DYE, IODINE, LORTAB AND SULFA. FAMILY HISTORY: Positive for heart disease. SOCIAL HISTORY: Reveals the patient is a half pack a day smoker and has for 15 years. The patient denies using alcohol, but does admit to marijuana, PCP and in the past meth. REVIEW OF SYSTEMS: At the time of admission, the patient presented with review of systems that included: CONSTITUTIONAL: Negative for fever or chills. EYES: Negative for eye pain or visual change. HENT: Negative for rhinorrhea, sore throat. RESPIRATORY: Shortness of breath with supine position. CARDIAC: Complains of heartburn. No palpitations. GASTROINTESTINAL: Denied nausea, vomiting, diarrhea. GENITOURINARY: Denied burning, frequency, urgency. [address] [address] CONSULTATION Name: CLAUDETTE LAWSON Room #: [facility] IN M.R.#: [id number] Admission: 05/13/19 Attend Phys: Lizandro Joshi MD Discharge: Date of : 80 Report #: [id number] MUSCULOSKELETAL: Had some back discomfort and swelling. SKIN: Denied rash or infection. There is a nonhealing wound for which the patient was seen on the border of the right below knee amputation. NEUROLOGIC: Denies numbness or tingling or weakness. ENDOCRINE: Denies palpitations or tremor or goiter. HEMATOLOGIC AND LYMPHATIC: Denies easy bruisability or bleeding. PHYSICAL EXAMINATION: GENERAL: The patient is a pleasant young woman. VITAL SIGNS: Temperature 36.7, heart rate 80, respiratory rate 18, blood pressure 146/94, pulse ox 100 on room air. HEENT: No scleral icterus, no arcus. NECK: No mass, no bruit. CHEST: Clear to auscultation. HEART: Rhythm regular, no murmur. There is some jugular venous distention when the patient sits. ABDOMEN: Protuberant, soft, centripetal obesity. EXTREMITIES: Dependent edema in the hips and thighs. As mentioned, right below knee amputation with a 2.5 cm nonhealing region in the middle of the stump incision. Left above-knee amputation well healed. No other obvious musculoskeletal deficits. NEUROLOGIC: Moves all 4 extremities. PSYCHIATRIC: Shows insight into problem, seems to be honest and appropriate, oriented x 3. SKIN: No other rash or infection. I reviewed the patient's history and physical with her and discussed options for treatment for this recurrent effusion. I suspect that the deteriorating renal function is related to the effusion and drainage of this. We will treat the symptom, but not the underlying cause. I have recommended subxiphoid pericardiotomy with placement of a drainage tube to allow us to more definitively control the space as the medical management continues. Risks and details, options and alternatives, were reviewed. The patient is taking Plavix, which may increase the bleeding risk, but that is certainly the case with any other technique as well and our procedure will be under direct visualization. The patient understands all of this and wishes to proceed. I will try to arrange a date for surgery on 05/21/2019, if possible. Thank you for the consult. <ELECTRONICALLY SIGNED> By: Bharat Regan MD 05/23/19 1735 15 [id number] Bharat Regan MD /nt
--- NOTE | 2019-05-23 17:50 | NUR ---
0700 assumed care of pt, vss, discussed plan of care and importance of turning and meds. 0920 discussed importance of taking meds however pt still refused heparin, see mar. pt refused turning until around 330pm despite encouraged q2h turns. pt refused axel removal as well due to the fact that she did not want to be stuck mutiple times for blood draws, IV team called,TICC recommended. Dr Blake called, he states that this is not indicated and that Art line should be kept in and the pt should be kept in the ICU for the night.
[2019-05-24] VITALS (15 sets, daily range): BP systolic 121–149; BP diastolic 71–87
--- NOTE | 2019-05-24 02:46 | NUR ---
NO EVENTS THIS FAR INTO SHIFT. REPORT GIVEN TO KWESI MEADOWS AT 0245. KWESI WILL ASSUME CARE AT THIS TIME.
--- NOTE | 2019-05-24 03:22 | NUR ---
Assumed care of this pt at 0245, she is resting at this time, vitals are stable. Per report, pt is taking PO food/fluids better, so IVF's were not re-started, panchal is patent, draining approx 800 ml of urine. Will continue to monitor.
[2019-05-24 06:37] LABS: ALBUMIN 1.3 g/dL (3.4-5.0); CALCIUM 8.4 mg/dL (8.5-10.1); CREATININE 3.8 mg/dL (0.6-1.0); PHOSPHORUS 6.1 mg/dL (2.5-4.9); POTASSIUM 5.4 mmol/L (3.5-5.1)
--- NOTE | 2019-05-24 11:22 | NUR ---
CHEST TUBE AND RADIAL ART LINE REMOVED PER MD ORDERS.
--- NOTE | 2019-05-24 18:20 | NUR ---
PT CARE ASSUMED APPROX 1810. PT ALERT AND ORIENTED X4. DENIES PAIN AND SOA. NO DISTRESS NOTED. DENIES QUESTIONS OR CONCERNS REGARDING TRANSFER OR POC.
--- NOTE | 2019-05-24 18:22 | NUR ---
PATIENT ALERT AND ORIENTED X4, PAIN MILDLY CONTROLLED WITH MEDICATION, ON ROOM AIR. NO COMPLAINTS OF DIFFICULTY BREATHING POST CHEST TUBE REMOVAL. FAMILY PRESENT AT THE BEDSIDE AND UPDATED ON THE PLAN OF CARE. REPORT GIVEN TO ONCOMING RN, NO SIGNS OF ACUTE DISTRESS NOTED AT THIS TIME. PATIENT TRANSFERRED TO CCU.
[2019-05-25 04:46] VITALS: BP 141/80
--- NOTE | 2019-05-25 06:00 | NUR ---
PT HAS BEEN AWAKE ALMOST ALL NIGHT. WATCHING TV. PAIN MED PRN FROM OLD CHEST TUBE INSERTION SITE. EATING AND DRINKING OFF AND ON. STEW DRAIN INTACT. BATHED. WILL CONT TO MONITOR.
[2019-05-25 06:14] LABS: BASOPHILS 0.5 % (0.0-2.0); EOSINOPHILS 5.1 % (0.0-3.0); HEMATOCRIT 30.1 % (37.0-47.0); HEMOGLOBIN 9.5 gm/dL (12.0-15.0); LYMPHOCYTES 13.9 % (24.0-44.0); MCH 27.5 pg (26.0-34.0); MCHC 31.5 g/dL (28.0-37.0); MCV 87.3 fL (80.0-100.0); MONOCYTES 5.2 % (1.0-8.0); PLATELET COUNT 450 thou/uL (150-400); POLYS 75.3 % (36.0-66.0); RBC 3.44 mil/uL (4.20-5.00); RDW 15.8 % (10.5-14.5); WBC 11.9 thou/uL (4.0-11.0)
[2019-05-25 06:32] LABS: ALBUMIN 1.4 g/dL (3.4-5.0); PHOSPHORUS 6.4 mg/dL (2.5-4.9); POTASSIUM 5.3 mmol/L (3.5-5.1)
[2019-05-25 08:00] VITALS: BP 142/95
--- NOTE | 2019-05-25 08:35 | HC ---
[facility] [place] [address] CONSULTATION Name: CLAUDETTE LAWSON Peña Room #: 211-P [facility] IN M.R.#: [id number] Admission: 05/13/19 Attend Phys: Lizandro Joshi MD Discharge: Date of : 80 Report #: [id number] THIS REPORT FOR: //name// CC: Lizandro Joshi [facility] physician/PCP REASON FOR CONSULTATION: Elevated creatinine. REASON FOR THE PRESENTATION: Shortness of breath. HISTORY OF PRESENT ILLNESS: A 39-year-old with past medical history of diabetes mellitus for the last 20 years. She is also known to have bilateral lower extremity amputation. She has history of pulmonary embolism and deep venous thrombosis. There is an issue of noncompliance reported in the past. She tells me that she sees a kidney specialist at [facility]. She was told that she has stage 4 chronic kidney disease. She does not recall the exact number. There is a history of drug abuse. She presented with worsening shortness of breath over the last few days associated with significant lower extremity swelling. She denies any cough or hemoptysis. No prior similar episodes. She is not maintained on any diuretics. OUTPATIENT MEDICATIONS: Included Plavix, lisinopril and insulin. There seems to be issues with compliance with her low salt diet. The patient upon presentation was found to have cardiomegaly on her chest x-ray with severely depressed cardiac ejection fractions of 25-30% with a large pericardial effusion and tamponade physiology. Creatinine on presentation was 2.8. Unfortunately, we do not have medical records. The patient's creatinine back in August 2017 was 0.9. She did have significant proteinuria back in 2018. I was asked to assist with the patient's current creatinine level and evaluate for a potential uremic pericarditis and pericardial effusion. She went to the hatchery laborer and had an emergent pericardiocentesis with about 1.2 liters of carlos-colored fluid. PAST MEDICAL HISTORY: 1. Cardiomyopathy. 2. Hypertension, poorly controlled. 3. Diabetes mellitus. 4. Bilateral amputation. 5. Substance abuse. 6. Chronic kidney disease. 7. Peripheral vascular disease. MEDICATIONS: 1. Gabapentin. 2. NovoLog. 3. Lantus insulin. 4. Plavix. 5. Lisinopril. [address] [address] CONSULTATION Name: CLAUDETTE LAWSON Room #: 211-P [facility] IN .R.#: [id number] Admission: 05/13/19 Attend Phys: Lizandro Joshi MD Discharge: Date of : 80 Report #: [id number] FAMILY HISTORY: Her grandmother was diabetic. She has a dad with heart problems. SOCIAL HISTORY: She admits to PCP, meth, marijuana. REVIEW OF SYSTEMS: GENERAL: Significant for weakness. CARDIOVASCULAR: Very significant shortness of breath at rest. Chest pain was present. PULMONARY: No cough or hemoptysis, but significant shortness of breath with minimal exertion and at rest. GASTROINTESTINAL: No nausea or vomiting. GENITOURINARY: No frequency, no urgency. NEUROLOGICAL: No headache, no dizziness, no syncope, no seizure. MUSCULOSKELETAL: She is a bilateral amputee. PHYSICAL EXAMINATION: VITAL SIGNS: Blood pressure is 150/99, pulse rate is 95, respiratory rate is 18. HEAD AND NECK: Elevated jugular venous pressure. CHEST: Crackles present bilaterally. CARDIOVASCULAR: Regular with no rub detected. There is an S3 gallop. ABDOMEN: Soft with abdominal wall edema. LOWER EXTREMITIES: +2 edema. She is status post right below knee amputation, left above-knee amputation. LABORATORY DATA: Reviewed. Sodium is 134, BUN is 29, creatinine is 2.9, magnesium is 1.6. ASSESSMENT, IMPRESSION AND PLAN: 1. Chronic kidney disease. 2. Large pericardial effusion. 3. Pulmonary edema. 4. Hypertensive urgency. 5. Unknown baseline creatinine. 6. Peripheral vascular disease. 7. The patient does have significant chronic kidney disease related to uncontrolled diabetes mellitus and hypertension. I doubt that her pericardial effusion has anything to do with her renal function; however, we will start the appropriate investigation. 8. She is status post pericardiocentesis and fluid studies are pending. 9. She needs aggressive risk factor modification. Unfortunately, she had poorly controlled diabetes mellitus, hypertension all of her life. She was told by VERONICA that she has stage 4 chronic kidney disease. 10. No indication that this is uremic pericarditis, no indication for dialysis. [address] [address] CONSULTATION Name: CLAUDETTE LAWSON Peña Room #: 211-P [facility] IN M.R.#: [id number] Admission: 05/13/19 Attend Phys: Lizandro Joshi MD Discharge: Date of : 80 Report #: [id number] 11. Initiate IV diuresis. 12. Salt restrictions. 13. Blood sugar control. 14. Blood pressure control. 15. We will continue to follow. <ELECTRONICALLY SIGNED> By: Garcia Kiser MD 05/25/19 0835 1243 1319 Garcia Kiser MD /nt
[2019-05-25 11:30] VITALS: BP 132/81
[2019-05-25 16:30] VITALS: BP 121/66
--- NOTE | 2019-05-25 18:35 | NUR ---
ASSUMED CARE AT SHIFT CHANGE, ALERT AND ORIENTED X4. C/O PAIN MEDICATED INDICATED, Q2 POSITIONED AND PATIENT LIKE TO STAY ON HER RT SIDE AND REFUSED TURN TO LT SIDE. SLEPT MOST OF THE DAY. AND WILL CONTINUE WITH POC.
[2019-05-25 20:26] VITALS: BP 119/77
--- NOTE | 2019-05-26 04:47 | NUR ---
Medicated for pain with some relief. Family brought food for pt. at shift change. She slept well during the night. Used bedpan and had bm x1 this shift then had 2 during the day per report. No respiratory distress. Midsternal incision and chest tube site has dressing ,clean,dry and intact. Adequate urine output. Making progress towards care plan goals.
[2019-05-26 05:36] LABS: ALBUMIN 1.4 g/dL (3.4-5.0); CALCIUM 8.6 mg/dL (8.5-10.1); CREATININE 4.1 mg/dL (0.6-1.0); PHOSPHORUS 6.5 mg/dL (2.5-4.9); POTASSIUM 5.3 mmol/L (3.5-5.1)
[2019-05-26 08:00] VITALS: BP 117/67
[2019-05-26 12:00] VITALS: BP 126/75
[2019-05-26] MEDS ORDERED: ADULT SUPPOSIT1 EACH RECTAL (13:40)
[2019-05-26] MEDS ORDERED: COLACE 100 MG100 MG PO (13:40)
[2019-05-26] MEDS ORDERED: HEPARIN SO5000 UNIT/ SUBQ (14:01)
--- NOTE | 2019-05-26 16:07 | NUR ---
FAXED CLINICAL UPDATE TO [facility] SPOKE WITH MILE THEY HAVE A RM AT THE [facility]. PT TO DC TO [facility] TODAY FAXED DC ORDERS/SUMMARY TO FACILITY SPOKE WITH MILE IN ADM SHE ARRANGED TRANSPORT FOR 1630. LEFT MSG WITH PT'S FATHER. UNIT NOTIFIED AND CHART COPY PER US. RN TO CALL REPORT TO [phone].
--- NOTE | 2019-05-26 17:06 | PATH ---
[facility] [address] [place] [address] PATHOLOGY RPT PROCEDURE Name: CLAUDETTE LAWSON N Room #: 211-P ADM IN M.R.#: [id number] Admission: 05/13/19 Date of : 80 Discharge: Report #: [id number] Path Case #: [id number] [facility] Accession Number: [id number] . 01 Material submitted: . pericardium - PERICARDIUM . 01 Clinical history: . Pericardial effusion . 02 Diagnosis: Pericardium, pericardectomy: - Moderate chronic inflammation along with reactive changes. (IUV:pit; 05/26/2019) QTP 05/26/2019 1314 Local . 02 Electronically signed: . Kaylyn Paris MD, Pathologist NPI- [id number] . 01 Gross description: . Received in formalin labeled "Claudette Lawson, pericardium," is a flat segment of rubbery, pale yellow-muniz soft tissue measuring 1.6 x 1.2 x 0.2 cm in greatest dimensions. The serosal surface is smooth and pale muniz to murillo-muniz in appearance. The surgical margin is inked black, and the specimen is serially sectioned and submitted entirely in cassette A1. Sectioning reveals pale yellow-muniz to slightly hemorrhagic cut surfaces. (DAC; 05/23/2019) XDC/XDC 05/23/2019 0929 Local . 02 Pathologist provided ICD-10: I31.9 . 02 CPT . 047052 Specimen Comment: A courtesy copy of this report has been sent to [phone], [phone] Specimen Comment: [phone] Specimen Comment: Report sent to / DR BLAIR Performed at: [address], [place] [id number] MD Rui Delaney MD Phone: [phone] Performed at: [address] [id number] MD Kaylyn Paris MD Phone: [phone]
[2019-05-26 17:11] VITALS: BP 126/75
--- NOTE | 2019-05-26 17:20 | NUR ---
pt left with credit cards and berrios in chest pocket of clothes. security and transport escorted her out. her 2 children helped to carry the rest of her belongings. IV d/c'd and panchal d/c'd as well as taisha dressing removed per MD's orders.
--- NOTE | 2019-05-26 17:26 | NUR ---
patient was told after lunch planned dc today and inquired which location. patient with no preference on center. Dr Talbert preferred center closest to as patient will likely need dialysis in future. patient agreeable to [facility]. She wants to transition to assisted living. Sp with Lisseth carpenter of facility she reports patient aware there is a waitlist and evaluation for apt she gave her that information. Rec orders and facility arranged transport at 1630. Notfied patient an hour prior to dc. She reports she will call her family. At no time did she tell RN or casemgt that time did not work with her family. When transport arrived patient wanted to pack her belongings herself. She reports she wanted another time. Did not tell stretcher transport to come to another time. THey stayed and extra 30 minutes for patient to pack her belongings. supervisor gas meter repair, casemgt director and security all present and aware.
--- NOTE | 2019-06-01 07:36 | O ---
[facility] [place] [address] OPERATIVE REPORT Name: CLAUDETTE LAWSON Room #: 211-P [facility] IN M.R.#: [id number] Admission: 05/13/19 Attend Phys: Lizandro Joshi MD Discharge: 05/26/19 Date of : 80 Report #: [id number] THIS REPORT FOR: //name// CC: Lizandro Joshi [facility] physician/PCP DATE OF SERVICE: 05/21/2019 PREOPERATIVE DIAGNOSIS: Recurrent pericardial effusion with tamponade physiology. POSTOPERATIVE DIAGNOSIS: Recurrent pericardial effusion with tamponade physiology. OPERATION: Subxiphoid pericardiotomy. SURGEON: Bharat Regan MD BUSINESS ANALYSIS PROFESSIONAL: LEONA White. ANESTHESIA: General. INDICATIONS: The patient is a 39-year-old, seen for Dr. Jordan. The patient was admitted on 05/13/2019 with a large pericardial effusion. This was drained by pericardiocentesis, but the patient had a recrudescence of both symptoms and the reaccumulation of the fluid. FINDINGS AND TECHNIQUE: After general anesthesia was established, an incision was made over the xiphoid process. The sternal margin was elevated and the anterior pericardium was cleared. An aperture was made in the pericardium and sample was sent for permanent pathology. Approximately 800 mL of fluid was aspirated. A 24 Nestor drain was brought through a separate stab wound and placed in a dependent position in the pericardium. The pericardium itself was thickened, but did not appear pathologic, noted the epicardial surface. Hemostasis was ascertained. The wound was closed in layers and the patient was taken to the recovery area in good condition having tolerated the procedure well with no hemodynamic issues. All counts were reported as correct. <ELECTRONICALLY SIGNED> By: Bharat Regan MD 06/01/19 0736 1738 1814 Bharat Regan MD /nt
== END 2019-05-26 17:22 | DRG 270 ==
LOC: ER 21:56 → 2N 23:28 → EROBS 23:28 → 2N 05-14 00:10 → 3W 05-16 17:12 → 4S 05-19 21:16 → ICU 05-21 19:55 → 2N 05-24 18:30
PROVIDERS: Emergency Medicine; Hospitalist; Internal Medicine; Internal Medicine Nephrology; Nurse Practitioner Acute Care; Physician Assistant; Surgery Vascular Surgery; ADMIT Hospitalist
PROC: 0W9D0ZZ Drainage of Pericardial Cavity, Open Approach (ICD-10-PCS; principal; 2019-05-21)
DX: I13.0 Hypertensive heart and chronic kidney disease with heart failure and stage 1 through stage 4 chronic kidney disease, or unspecified chronic kidney disease (principal); I50.23 Acute on chronic systolic (congestive) heart failure; J96.01 Acute respiratory failure with hypoxia; N17.0 Acute kidney failure with tubular necrosis; I31.4 Cardiac tamponade; N04.9 Nephrotic syndrome with unspecified morphologic changes; I31.3 Pericardial effusion (noninflammatory); N18.4 Chronic kidney disease, stage 4 (severe); I13.2 Hypertensive heart and chronic kidney disease with heart failure and with stage 5 chronic kidney disease, or end stage renal disease; I42.9 Cardiomyopathy, unspecified; I16.0 Hypertensive urgency; F17.210 Nicotine dependence, cigarettes, uncomplicated; E10.65 Type 1 diabetes mellitus with hyperglycemia; E07.9 Disorder of thyroid, unspecified; K59.00 Constipation, unspecified; E10.22 Type 1 diabetes mellitus with diabetic chronic kidney disease; F19.19 Other psychoactive substance abuse with unspecified psychoactive substance-induced disorder; E10.51 Type 1 diabetes mellitus with diabetic peripheral angiopathy without gangrene; Z89.511 Acquired absence of right leg below knee; Z89.411 Acquired absence of right great toe; Z88.2 Allergy status to sulfonamides; Z88.6 Allergy status to analgesic agent; Z88.1 Allergy status to other antibiotic agents; Z91.041 Radiographic dye allergy status; Z83.3 Family history of diabetes mellitus; Z82.49 Family history of ischemic heart disease and other diseases of the circulatory system; Z86.718 Personal history of other venous thrombosis and embolism; Z95.820 Peripheral vascular angioplasty status with implants and grafts; Z79.899 Other long term (current) drug therapy
CPT/HCPCS: 10078; 10081; 10100; 10102; 10196; 10879; 50010; 50101; 50386; 50455; 50497; 50662; 51301; 51467; 53358; 54118; 56525; 56526; 56527; 56528; 57092; 57093; 57254; 62110; 62900; 65020; 65040; 70005

== ENCOUNTER 2019-07-11 19:00 | Inpatient (IN) | payer OTHER ==
[~2019-07-11] VITALS: Ht 162.6 cm; Wt 115.3 kg
[~2019-07-11 19:00] MED LIST changes: +ADULT SUPPOSIT1 EACH RECTAL; +COLACE 100 MG100 MG PO; +COREG6.25 MG PO; +HEPARIN SO5000 UNIT/ SUBQ; +LANTUS SUBQ; +LASIX 40 MG TAB40 M1 PO; +PLAVIX 75 MG TA75 MG PO
[2019-07-11 19:02] VITALS: BP 161/89
[2019-07-11] MEDS ORDERED: BIOFREEZE118 ML TOP (19:19)
[2019-07-11] MEDS ORDERED: ARTIFICIAL TEAR1510 OPHTHALMIC (19:19)
[2019-07-11] MEDS ORDERED: BREO ELLIPTA 11 EACH INH (19:20)
[2019-07-11] MEDS ORDERED: COMBIVENT INH (19:21)
[2019-07-11] MEDS ORDERED: DULCOLAX STOOL100 M1 PO (19:23)
[2019-07-11] MEDS ORDERED: FUROSEMIDE 20 M20 MG PO (19:24)
[2019-07-11] MEDS ORDERED: MELATONIN3 M1 PO (19:24)
[2019-07-11] MEDS ORDERED: TRAMADOL 50 MG50 MG PO (19:25)
[2019-07-11 19:28] LABS: ABSOLUTE NEUTROPHILS 3.2 thou/uL (1.4-8.2); BASOPHILS 0.9 % (0.0-2.0); HEMATOCRIT 31.6 % (37.0-47.0); HEMOGLOBIN 9.6 gm/dL (12.0-15.0); LYMPHOCYTES 26.3 % (24.0-44.0); MCH 27.1 pg (26.0-34.0); MCHC 30.4 g/dL (28.0-37.0); MCV 89.2 fL (80.0-100.0); MONOCYTES 7.8 % (1.0-8.0); PLATELET COUNT 264 thou/uL (150-400); RBC 3.55 mil/uL (4.20-5.00); WBC 5.5 thou/uL (4.0-11.0)
[2019-07-11 19:36] LABS: CALCIUM 8.8 mg/dL (8.5-10.1); CREATININE 3.8 mg/dL (0.6-1.0); POTASSIUM 4.8 mmol/L (3.5-5.1)
[2019-07-11 19:42] LABS: ALBUMIN 2.5 g/dL (3.4-5.0); TOTAL BILIRUBIN 0.4 mg/dL (<0.1-1.0); TOTAL PROTEIN 7.3 g/dL (6.4-8.2)
[2019-07-11 21:33] VITALS: BP 167/89
[2019-07-11 22:00] VITALS: BP 162/89
[2019-07-11 22:18] VITALS: BP 165/85
[2019-07-11 22:59] LABS: FOLIC ACID 11.9 ng/mL (8.6-58.9); TSH 2.202 uIU/mL (0.358-3.740)
[2019-07-12 04:45] VITALS: BP 148/81
[2019-07-12 05:07] LABS: ABSOLUTE NEUTROPHILS 2.9 thou/uL (1.4-8.2); BASOPHILS 0.6 % (0.0-2.0); HEMATOCRIT 30.4 % (37.0-47.0); HEMOGLOBIN 9.5 gm/dL (12.0-15.0); LYMPHOCYTES 30.5 % (24.0-44.0); MCH 27.8 pg (26.0-34.0); MCHC 31.2 g/dL (28.0-37.0); MONOCYTES 9.7 % (1.0-8.0); PLATELET COUNT 263 thou/uL (150-400); POLYS 52.2 % (36.0-66.0); RBC 3.41 mil/uL (4.20-5.00); RDW 16.5 % (10.5-14.5); WBC 5.5 thou/uL (4.0-11.0)
[2019-07-12 05:40] LABS: CALCIUM 8.7 mg/dL (8.5-10.1); CREATININE 3.7 mg/dL (0.6-1.0); MAGNESIUM 2.1 mg/dL (1.8-2.4); POTASSIUM 5.1 mmol/L (3.5-5.1)
[2019-07-12 07:55] VITALS: BP 153/82
--- NOTE | 2019-07-12 10:51 | EKG ---
[address] [place] [address] ELECTROCARDIOGRAM REPORT Name: LAWSONCLAUDETTE Room #: 208-P ADM IN M.R.#: [id number] Admission: 07/11/19 Attend Phys: Reuben Blake MD Discharge: Date of : 80 Report #: [id number] THIS REPORT FOR: //name// [facility] ED Test Date: 2019-07-11 Test Time: 19:23:34 Pat Name: CLUADETTE LAWSON Department: Room: 208 Gender: F Loom Operator: KARYNA : 1980 Requested By: Klaudia Rojas Order Number: [id number] MD: Remy Isaac Measurements Intervals [place] Rate: 72 P: 37 LA: 164 QRS: 47 QRSD: 92 T: 173 QT: 604 QTc: 662 Interpretive Statements Sinus rhythm Probable left atrial enlargement Low voltage, precordial leads RSR' in V1 or V2, right VCD Nonspecific T abnrm, anterolateral leads Prolonged QT interval Compared to ECG 05/15/2019 06:55:05 Low QRS voltage now present Electronically Signed On 07-12-2019 10:50:38 [employer]OR [employer] OFFICER by Remy Isaac [email or web address] <ELECTRONICALLY SIGNED> By: Remy Isaac MD 07/12/19 1050 22 22 Remy Isaac MD /EPI
--- NOTE | 2019-07-12 11:08 | 2DMMODE ---
[facility] [address] [place] [address] 2 D/M-MODE ECHOCARDIOGRAM Name: CLAUDETTE LAWSON Room #: 208-P [facility] IN ..#: [id number] Admission: 07/11/19 Attend Phys: Reuben Blake MD Discharge: Date of : 80 Report #: [id number] THIS REPORT FOR: //name// ADDENDUM APPROVED REPORT Study performed: 07/12/2019 08:19:40 EXAM: Comprehensive 2D, Doppler, and color-flow Echocardiogram Patient Location: Bedside Room #: 208 Status: on-call BSA: 2.18 HR: 71 bpm BP: 148/81 mmHg Rhythm: NSR Other Information Study Quality: Adequate Risk Factors: Cardiac Risk Factors: HTN, DM Indications Congestive Heart Failure Dyspnea Hx pleural and pericardial effusions S/P pericardiotomy 2D Dimensions IVSd: 11.21 (7-11mm) LVOT Diam: 20.00 (18-24mm) LVDd: 38.93 mm PWd: 12.06 (7-11mm) Ascending Ao: 27.91 (22-36mm) LVDs: 34.52 (25-40mm) Aortic Root: 27.77 mm LV Single Plane 4CH: 32.40 % LV Single Plane 2CH: 35.50 % Biplane EF: 38.8 % Volumes Left Atrial Volume (Systole) Single Plane 4CH: 84.38 mL Single Plane 2CH: 94.02 mL LA ESV Index: 45.00 mL/m2 Aortic Valve AoV Peak Stalin.: 0.95 m/s [facility] [address] [address] 2 D/M-MODE ECHOCARDIOGRAM Name: JADE LAWSONLAI Pompa Room #: 208-P [facility]#: [id number] Admission: 07/11/19 Attend Phys: Reuben Blake MD Discharge: Date of : 80 Report #: [id number] AO Peak Gr.: 3.61 mmHg LVOT Max P.30 mmHg LVOT Max V: 0.76 m/s AMMY Vmax: 2.57 cm2 Mitral Valve IVRT: 73.82 ms TDI Medial E' Stalin.: 0.07 m/s Lateral E' Stalin.: 0.09 m/s Pulmonary Valve PV Peak Stalin.: 0.98 m/s PV Peak Gr.: 3.84 mmHg Tricuspid Valve TR Peak Stalin.: 2.84 m/s RAP Estimate: 10.00 mmHg TR Peak Gr.: 32.16 mmHg PA Pressure: 42.00 mmHg Left Ventricle The left ventricle is normal size. There is global hypokinesis of the left ventricle. Borderline concentric left ventricular hypertrophy. Left ventricular systolic function is moderate to severely decreased. LVEF is 35%. This study is not technically sufficient to allow evaluation of the LV diastolic function. Right Ventricle Right ventricle is dilated. Right ventricle is hypokinetic. Atria Left atrium is moderately dilated. Right atrium is dilated. Aortic Valve The aortic valve is normal in structure. No aortic regurgitation is present. There is no aortic valvular stenosis. Mitral Valve The mitral valve is normal in structure. Trace to mild mitral regurgitation. No evidence of mitral valve stenosis. Tricuspid Valve The tricuspid valve is normal in structure. Moderate to severe tricuspid regurgitation. Pulmonary artery pressure is 42 mmHg. Moderate pulmonary hypertension. [facility] [place] [address] 2 D/M-MODE ECHOCARDIOGRAM Name: CLAUDETTE LAWSON Peña Room #: 208-P [facility] IN M.R.#: [id number] Admission: 07/11/19 Attend Phys: Reuben Blake MD Discharge: Date of : 80 Report #: [id number] Pulmonic Valve The pulmonary valve is normal in structure. Moderate pulmonic regurgitation. Great Vessels The aortic root is normal in size. The ascending aorta is normal in size. IVC is dilated and collapses <50% with inspiration. Pericardium Small to moderate pericardial effusion. No tamponade physiology. <Conclusion> The left ventricle is normal size. Left ventricular systolic function is moderate to severely decreased. Right ventricle is dilated. Right atrium is dilated. Left atrium is moderately dilated. The aortic valve is normal in structure. Trace to mild mitral regurgitation. Moderate to severe tricuspid regurgitation. Pulmonary artery pressure is 42 mmHg. Moderate pulmonary hypertension. Small to moderate pericardial effusion. No tamponade physiology. <ELECTRONICALLY SIGNED> By: Remy Isaac MD 07/12/197 06 06 Remy Isaac MD /INF
[2019-07-12 12:00] VITALS: BP 144/83
[2019-07-12 12:19] LABS: HEMATOCRIT 29.1 % (37.0-47.0); HEMOGLOBIN 8.9 gm/dL (12.0-15.0); MCH 27.3 pg (26.0-34.0); MCHC 30.7 g/dL (28.0-37.0); MCV 89.1 fL (80.0-100.0); RBC 3.27 mil/uL (4.20-5.00); RDW 16.9 % (10.5-14.5); WBC 4.7 thou/uL (4.0-11.0)
[2019-07-12 12:31] LABS: APTT 28.1 Seconds (24.5-32.8); INR 1.1; PROTIME 11.7 Seconds (9.3-11.4)
[2019-07-12 15:21] VITALS: BP 138/80
[2019-07-12 20:10] VITALS: BP 146/89
[2019-07-13 04:39] VITALS: BP 140/79
[2019-07-13 05:46] LABS: HEMATOCRIT 28.8 % (37.0-47.0); MCH 27.7 pg (26.0-34.0); MCHC 31.1 g/dL (28.0-37.0); MCV 89.3 fL (80.0-100.0); RBC 3.23 mil/uL (4.20-5.00); RDW 16.5 % (10.5-14.5); WBC 4.7 thou/uL (4.0-11.0)
[2019-07-13 05:49] LABS: CALCIUM 8.9 mg/dL (8.5-10.1); POTASSIUM 5.1 mmol/L (3.5-5.1)
[2019-07-13 08:02] VITALS: BP 127/79
--- NOTE | 2019-07-13 11:14 | HC ---
[facility] [place] [address] CONSULTATION Name: CLAUDETTE LAWSON Peña Room #: 208-P [facility] IN ..#: [id number] Admission: 07/11/19 Attend Phys: Reuben Blake MD Discharge: Date of : 80 Report #: [id number] THIS REPORT FOR: //name// CC: Reuben Blake [facility] physician/PCP DATE OF SERVICE: 07/12/2019 CARDIOLOGY CONSULTATION INDICATION: Dyspnea. HISTORY OF PRESENT ILLNESS: This is a 39-year-old female with a history of chronic kidney disease stage 4, diabetes mellitus, cardiomyopathy, peripheral vascular disease, status post bilateral lower extremity amputations, diabetes mellitus, DVT and pericardial effusion. She was here about a month ago with a large pericardial effusion, undergoing pericardiocentesis. During the hospitalization, the pericardial fluid reaccumulated and she underwent a subxiphoid pericardotomy. She was finally discharged to rehab. At rehab, she developed increasing dyspnea for the past week. She denies any chest pain, fever, or cough. PAST MEDICAL HISTORY: Cardiomyopathy with an EF in the 30% range. Pericardial effusion, status post subxiphoid pericardotomy. Peripheral vascular disease with bilateral lower extremity amputations. Chronic kidney disease, diabetes mellitus, DVT, drug abuse. ALLERGIES: AMPICILLIN, DYE, CODONE, AND SULFA. FAMILY HISTORY: Negative for premature CAD. SOCIAL HISTORY: Prior history of drug use including marijuana, methadone, PCP. History of tobacco use, had quit, but seems to be smoking again. MEDICATIONS: Include carvedilol 6.25 twice a day, lisinopril 10 mg daily, Lasix orally, insulin, Combivent inhaler, tramadol. REVIEW OF SYSTEMS: A full 10-point review of systems performed. Only the pertinent positives and negatives are described in the HPI. PHYSICAL EXAMINATION: VITAL SIGNS: Blood pressure is 150/80, heart rate is 70 beats per minute. GENERAL APPEARANCE: An overweight female, in mild distress. HEENT: Normocephalic, atraumatic. Oral mucosa moist. NECK: Supple. LUNGS: Diminished breath sounds at the bases. [facility] [address] [place] [address] CONSULTATION Name: CLAUDETTE LAWSON Peña Room #: 208-P [facility] IN ..#: [id number] Admission: 07/11/19 Attend Phys: Reuben Blake MD Discharge: Date of : 80 Report #: [id number] CARDIAC: Regular rate and rhythm, S1, S2 positive. ABDOMEN: Soft. Bowel sounds positive. EXTREMITIES: Bilateral amputations. LABORATORY VALUES: White count 5.5, hemoglobin is 9.5, creatinine is 3.7. ASSESSMENT AND PLAN: 1. Acute on chronic combined congestive heart failure, has evidence for fluid overload. Would continue with IV diuresis, strict I's and O's. Limit salt intake. 2. Respiratory failure, echo reveals increased right-sided chamber sizes, not significantly changed from previous echos. Would consider ruling out pulmonary embolism as she has a prior history of deep venous thrombosis. 3. Pericardial effusion, status post subxiphoid pericardotomy. Current echo reveals a decrease in effusion with no evidence for tamponade. 4. Diabetes mellitus, continue insulin and fingersticks. 5. Peripheral vascular disease, status post amputation. 6. Substance abuse/tobacco use, smoking cessation is advised. <ELECTRONICALLY SIGNED> By: Remy Isaac MD 07/13/19 [id number] Remy Isaac MD /nt
[2019-07-13 11:59] VITALS: BP 138/77
[2019-07-13 16:50] VITALS: BP 161/76
[2019-07-13 19:07] LABS: PROT/CREAT RATIO 6.8; URINE PROTEIN-RANDOM* 372.9 mg/dL (<11.9)
[2019-07-13 19:37] VITALS: BP 143/93
[2019-07-14 00:31] VITALS: BP 140/79
[2019-07-14 04:10] VITALS: BP 146/83
[2019-07-14 06:24] LABS: ALBUMIN 2.5 g/dL (3.4-5.0); CALCIUM 8.5 mg/dL (8.5-10.1); CREATININE 4.2 mg/dL (0.6-1.0); PHOSPHORUS 6.3 mg/dL (2.5-4.9); POTASSIUM 5.1 mmol/L (3.5-5.1)
--- NOTE | 2019-07-14 07:43 | HC ---
[facility] [place] [address] CONSULTATION Name: CLAUDETTE LAWSON Peña Room #: 208-P ADM IN M.R.#: [id number] Admission: 07/11/19 Attend Phys: Reuben Blake MD Discharge: Date of : 80 Report #: [id number] THIS REPORT FOR: //name// CC: Reuben Blake [facility] physician/PCP DATE OF SERVICE: 07/13/2019 NEPHROLOGY CONSULTATION REASON FOR CONSULTATION: Anasarca and renal failure. HISTORY OF PRESENT ILLNESS: This is a 39-year-old female known to us from previous hospitalizations. In fact, this is well documented from a lengthy hospitalization about 6 weeks ago. At that time, she came in with a pericardial effusion and had pericardiocentesis followed by pericardial window. During that hospitalization, she ran a creatinine level between 3.7 and 4.0. We also documented at that time that she had 16 grams of proteinuria, all consistent with nephrotic syndrome with her chronic renal disease, which was due to diabetic nephropathy. About 6 weeks ago, she was discharged to a local care center. It looks like she was appropriately sent out on her diuretics and her lisinopril. She tells me that about 2 weeks ago, she started noticing more edema. This started in the stumps of her lower extremities (she has had bilateral amputations). More recently, it spread to her pelvis, then abdomen and torso. It also includes her arms. With that she has become more dyspneic including some orthopnea and some PND. She was readmitted 2 days ago, but we are just consulted today for evaluation and treatment. PAST MEDICAL HISTORY: Longstanding type 2 diabetes mellitus as well as hypertension. She has developed diabetic renal disease and progressive chronic kidney disease, most recently in the stage 4 range, but looking like now is closer to stage 5. She has some cardiomyopathy with previous ejection fractions of 25-30%. She had a pericardial effusion as noted above. She has had previous amputations including right aliqw-erj-kwxs amputation and left stwyc-ltl-nrvx amputation. She has longstanding hypertension. CURRENT MEDICATIONS: Include lisinopril 10 mg daily, Plavix 75 mg daily, gabapentin, carvedilol 6.25 mg b.i.d., pantoprazole 40 mg daily, some inhalers, tramadol for pain, heparin drip and some furosemide. ALLERGIES: SULFA, IODINE, IV CONTRAST, HYDROCODONE and AMPICILLIN. SOCIAL HISTORY: The patient is single, medically disabled and has been living in a care center since she was discharged 6 weeks ago. REVIEW OF SYSTEMS: Mainly positive for the increasing edema diffusely as noted, [facility] [address] [place] [address] CONSULTATION Name: CLAUDETTE LAWSON Peña Room #: 208-P [facility] IN ..#: [id number] Admission: 07/11/19 Attend Phys: Reuben Blake MD Discharge: Date of : 80 Report #: [id number] dyspnea, orthopnea, PND. She denies nausea or vomiting recently. No current chest pain. She is most concerned about the swelling in her legs because she was trying to get new prostheses fitted and get more physical therapy, but that has obviously been side lined at this point. PHYSICAL EXAMINATION: GENERAL: Massively edematous female with anasarca. VITAL SIGNS: Blood pressure 138/77, heart rate 65, temperature 97.4, oxygen saturation 94%, respiratory rate 16. HEENT: Shows pupils are equal and reactive. Sclerae nonicteric. Oral mucosa is moist. NECK: Veins are distended bilaterally to the angle of the mandible. Neck is otherwise supple. CHEST: Shows mild decreased breath sounds in the bases. I hear no rales or wheezes. BACK: Shows no CVA tenderness. HEART: Has a regular rate and rhythm. I hear no rub. ABDOMEN: Has dramatic abdominal wall edema. Bowel sounds are present. EXTREMITIES: She has 2+ bilateral upper extremity edema and 4+ edema of her thighs. She has the right avelb-mjv-gkgd amputation and left dkxrr-fzz-wxmc amputation. LABORATORY DATA: Sodium 137, potassium 5.1, chloride 107, bicarbonate 21, BUN 54, creatinine 4.0, glucose 123, calcium 8.9, total protein 7.3, albumin 2.5, AST 19, ALT 13. White count 4.7, hemoglobin 9.0, hematocrit 28.8, platelets 249,000. No urinalysis done. Chest x-ray is reviewed. There is evidence of right pleural effusion and some vascular redistribution markings. No mandi pulmonary edema. I reviewed her echocardiogram as well as Dr. Isaac's report. She has an EF now listed as 35% with global hypokinesis. There was still some pericardial effusion present, but he thinks it is less than it was during her prior hospitalization and she showed no evidence of tamponade physiology. ASSESSMENT: 1. Anasarca. As noted during her previous hospitalization, this is all due to her nephrotic syndrome. She had 16 grams of proteinuria at that time. We got her started on some STEVIE inhibitor therapy. She has not had a followup from a renal standpoint since she was discharged. We will recheck her proteinuria at this time. She needs aggressive diuresis. I will get her on a Lasix drip. We will also add some oral metolazone. She should be on a tight sodium restriction. We will see how she responds. 2. Chronic kidney disease stage 5. She has very aggressive diabetic nephropathy. I have had this discussion with her and emphasized that we will try to get her diuresed with the medications as noted. She may not be able to accomplish that with her very poor level of renal function. It could well be [facility] [place] [place] [address] CONSULTATION Name: CLAUDETTE LAWSON Peña Room #: 208-P ADM IN .R.#: [id number] Admission: 07/11/19 Attend Phys: Reuben Blake MD Discharge: Date of : 80 Report #: [id number] that she would be best served with dialysis. We will follow along closely as that determination may need to be made during this hospitalization. She expresses understanding. She realizes that at some point she will need dialysis one way or another and she was not quite ready for that at this point. 3. Recent pericardial effusion with pericardiocentesis and pericardiectomy. Effusion, as noted on her echocardiogram. 4. Longstanding diabetes mellitus with neuropathy, gastroparesis and nephropathy. 5. Prior right gllhd-yvh-bkjj amputation and left pvvoo-itz-ovhs amputation. 6. Obesity. PLAN: 1. I will put her on Lasix drip at 20 mg per hour. 2. Add metolazone 5 mg daily to assist in the diuresis. 3. Tight sodium restriction, less than 2 grams daily. 4. Recheck proteinuria. 5. Follow up labs in the morning. 6. Very close monitoring of this patient. As noted above, we will be aggressive in attempts to diurese her. It could well be that she will need to start dialysis during this hospitalization. <ELECTRONICALLY SIGNED> By: Kaushik Morrell MD 07/14/19 [id number] [id number] Kaushik Morrell MD /nt
[2019-07-14 07:55] VITALS: BP 142/83
[2019-07-14 12:40] VITALS: BP 154/74
[2019-07-14 16:16] VITALS: BP 141/78
[2019-07-14 19:53] VITALS: BP 140/79
[2019-07-15 03:51] LABS: HEMATOCRIT 28.3 % (37.0-47.0); HEMOGLOBIN 8.7 gm/dL (12.0-15.0); MCH 27.6 pg (26.0-34.0); MCHC 30.6 g/dL (28.0-37.0); RBC 3.14 mil/uL (4.20-5.00); WBC 5.5 thou/uL (4.0-11.0)
[2019-07-15 04:07] LABS: ALBUMIN 2.3 g/dL (3.4-5.0); CALCIUM 8.8 mg/dL (8.5-10.1); CREATININE 4.3 mg/dL (0.6-1.0); PHOSPHORUS 6.3 mg/dL (2.5-4.9)
[2019-07-15 04:13] LABS: POTASSIUM 5.2 mmol/L (3.5-5.1)
[2019-07-15 04:58] VITALS: BP 139/83
[2019-07-15 09:45] VITALS: BP 146/74
[2019-07-15 11:18] VITALS: BP 143/91
[2019-07-15 16:40] VITALS: BP 154/81
[2019-07-15 19:32] VITALS: BP 160/82
[2019-07-16 03:36] VITALS: BP 144/70
[2019-07-16 05:54] LABS: ALBUMIN 2.4 g/dL (3.4-5.0); CALCIUM 8.8 mg/dL (8.5-10.1); CREATININE 4.4 mg/dL (0.6-1.0); PHOSPHORUS 6.1 mg/dL (2.5-4.9); POTASSIUM 4.9 mmol/L (3.5-5.1)
[2019-07-16 08:04] VITALS: BP 130/64
[2019-07-16 11:20] VITALS: BP 141/72
[2019-07-16 16:27] VITALS: BP 145/74
[2019-07-16 19:32] VITALS: BP 154/75
[2019-07-17 04:45] VITALS: BP 144/69
[2019-07-17 05:09] LABS: ALBUMIN 2.3 g/dL (3.4-5.0); CALCIUM 8.2 mg/dL (8.5-10.1); CREATININE 4.5 mg/dL (0.6-1.0); PHOSPHORUS 5.9 mg/dL (2.5-4.9); POTASSIUM 4.8 mmol/L (3.5-5.1)
[2019-07-17 08:05] VITALS: BP 133/71
[2019-07-17] MEDS ORDERED: METOLAZONE 5 MG5 MG PO (10:36)
[2019-07-17] MEDS ORDERED: DEMADEX20 MG PO (10:36)
[2019-07-17 12:15] VITALS: BP 146/80
== END 2019-07-17 13:39 | DRG 291 ==
LOC: ER 19:00 → EROBS 20:47 → 2N 20:47
PROVIDERS: Hospitalist; Internal Medicine Cardiovascular Disease; Internal Medicine Nephrology; Nurse Practitioner; Student in an Organized Health Care Education/Training Program; ADMIT Hospitalist
DX: I13.0 Hypertensive heart and chronic kidney disease with heart failure and stage 1 through stage 4 chronic kidney disease, or unspecified chronic kidney disease (principal); J96.90 Respiratory failure, unspecified, unspecified whether with hypoxia or hypercapnia; I50.43 Acute on chronic combined systolic (congestive) and diastolic (congestive) heart failure; E44.0 Moderate protein-calorie malnutrition; Z68.41 Body mass index [BMI] 40.0-44.9, adult; N18.5 Chronic kidney disease, stage 5; F17.210 Nicotine dependence, cigarettes, uncomplicated; E11.22 Type 2 diabetes mellitus with diabetic chronic kidney disease; E11.51 Type 2 diabetes mellitus with diabetic peripheral angiopathy without gangrene; F19.11 Other psychoactive substance abuse, in remission; I42.9 Cardiomyopathy, unspecified; E11.40 Type 2 diabetes mellitus with diabetic neuropathy, unspecified; E11.43 Type 2 diabetes mellitus with diabetic autonomic (poly)neuropathy; K31.84 Gastroparesis; E66.9 Obesity, unspecified; I27.20 Pulmonary hypertension, unspecified; D64.9 Anemia, unspecified; T87.89 Other complications of amputation stump; Y83.8 Other surgical procedures as the cause of abnormal reaction of the patient, or of later complication, without mention of misadventure at the time of the procedure; G89.4 Chronic pain syndrome; Z80.9 Family history of malignant neoplasm, unspecified; Z82.49 Family history of ischemic heart disease and other diseases of the circulatory system; Z89.611 Acquired absence of right leg above knee; Z89.512 Acquired absence of left leg below knee; Z95.1 Presence of aortocoronary bypass graft; Z89.431 Acquired absence of right foot; Z86.718 Personal history of other venous thrombosis and embolism; Z95.820 Peripheral vascular angioplasty status with implants and grafts; Z79.01 Long term (current) use of anticoagulants; Z79.891 Long term (current) use of opiate analgesic; Z79.899 Other long term (current) drug therapy; Z88.5 Allergy status to narcotic agent; Z88.2 Allergy status to sulfonamides; Z88.8 Allergy status to other drugs, medicaments and biological substances; Z88.1 Allergy status to other antibiotic agents; Z91.041 Radiographic dye allergy status; Z83.3 Family history of diabetes mellitus
CPT/HCPCS: 10081